=== PATIENT | female | born 1995 | race Caucasian/White ===

== ENCOUNTER 2022-03-14 15:48 | Inpatient (IN) | payer MEDICAID, SELFPAY ==
[2022-03-14 15:49] VITALS: BP 143/74; PULSE 85; RESP 16; TEMP 36.4; O2SAT 99; BMI 19.8
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
[2022-03-14] MEDS: LORazepam 2 mg Tablet PO (16:03)
[2022-03-14] MEDS: ziprasidone hcl 20 mg Capsule PO (16:03)
[2022-03-14 16:20] VITALS: BP 143/74; PULSE 85; RESP 19; O2SAT 99
[2022-03-14 16:55] LABS: Basophils # 0.1 10^3/uL (0.0-0.1); Basophils % 0.6 %; Eosinophils # 0.1 10^3/uL (0.0-0.8); Eosinophils % 0.6 %; Hematocrit 38.3 % (37.0-47.0); Hemoglobin 12.5 g/dL (11.5-15.3); Lymphocytes # 2.5 10^3/uL (0.8-4.8); Lymphocytes % 22.8 %; Mean Corpuscular HGB Conc 32.6 g/dL (30.0-36.0); Mean Corpuscular Hemoglobin 26.8 pg (28.0-34.0); Mean Platelet Volume 10.9 fL (7.4-10.4); Monocytes # 0.9 10^3/uL (0.2-0.9); Monocytes % 8.2 %; Neutrophils % 67.6 %; Nucleated Red Blood Cells % 0 %; Platelet Count 321 10^3/cmm (130-400); Red Blood Count 4.67 10^6/uL (4.1-5.3); Red Cell Distribution Width 12.8 % (12.1-15.1); White Blood Count 10.8 10^3/uL (4.0-10.0)
[2022-03-14 17:20] LABS: Alanine Aminotransferase 24 U/L (0-33); Albumin Level 4.8 g/dL (3.5-5.2); Alkaline Phosphatase 68 U/L (35-105); Anion Gap 14.3 (5-19); Aspartate Amino Transferase 46 U/L (0-32); Blood Urea Nitrogen 9 mg/dL (6-20); Calcium 9.8 mg/dL (8.5-10.5); Carbon Dioxide 25 mmol/L (22-29); Chloride 103 mmol/L (98-107); Globulin 3.2 g/dL (1.3-4.6); Glomerular Filtration Rate 86.7 mL/min (90-130); Glucose 120 mg/dL (65-115); Osmolality Calculated 288 mOsm/kg (285-295); Potassium 3.3 mmol/L (3.5-5.1); Sodium 139 mmol/L (136-145); Total Bilirubin 0.6 mg/dL (0.15-1.2)
[2022-03-14 17:25] LABS: Acetaminophen < 5.0 ug/mL (10-30); Alcohol Level < 10 mg/dL (0-10); Salicylate < 0.3 mg/dL (3-10)
[2022-03-14 22:00] VITALS: BP 143/74; PULSE 85; RESP 19; TEMP 36.4
[2022-03-14 22:41] VITALS: BP 114/77; PULSE 80; RESP 17; TEMP 36.4; O2SAT 96
[2022-03-15 06:00] VITALS: BP 114/79; PULSE 73; RESP 14; TEMP 36.7; O2SAT 93
[2022-03-15 08:52] LABS: HCG Qualitative Urine. Negative (Negative)
[2022-03-15 09:22] LABS: Amphetamines Screen Urine Positive (Negative); Barbiturates Screen Urine Negative (Negative); Benzodiazepines Screen Urine Positive (Negative); Cocaine Screen Urine Negative (Negative); Opiate Screen Urine Negative (Negative); PCP Screen Urine Negative (Negative); THC Screen Urine Positive (Negative)
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
[2022-03-15] MEDS: hyDROXYzine 25 mg Capsule 50 MG PO (13:34)
[2022-03-15 14:00] VITALS: BP 111/76; PULSE 70; RESP 16; TEMP 36.8; O2SAT 100
[2022-03-15] MEDS: paliperidone ER 6 mg Tablet PO (17:37)
[2022-03-15 21:00] VITALS: BP 102/66; PULSE 78; RESP 17; TEMP 36.3; O2SAT 99
[2022-03-15] MEDS: trazodone 50 mg Tablet PO (21:26)
[2022-03-16 06:00] VITALS: BP 116/85; PULSE 93; RESP 17; TEMP 36.8; O2SAT 98
[2022-03-16] MEDS: fluoxetine 20 mg Capsule PO (08:49)
[2022-03-16] MEDS: paliperidone ER 6 mg Tablet PO (08:49)
[2022-03-16 13:00] VITALS: BP 112/75; PULSE 68; RESP 18; TEMP 36.8; O2SAT 100
--- NOTE | 2022-03-16 17:11 | P.NPUPN_ITS ---
Subjective NPU Subjective: Patient presents today reporting that she is tired but okay with the medication. We discussed the importance of us assisting her with her recovery and help to alleviate the psychosis. Otherwise she denies any new issues. Mental Status Exam MSE Comments: This is a well nourished, well developed white female in hospital scrubs with adequate grooming and limited eye contact. No abnormal movements except for mild psychomotor agitation. Cooperative with exam in mild distress. Speech was normal rate and volume with frequent pensive pauses. Inappropriate laughter at times. Mood described as tired, affect is congruent. Thought process, organized. Thought content: patient denies suicidal or homici jeanie ideation, endorses paranoia but no delusions noted and endorses auditory and visual hallucinations. Attention and concentration are intact and memory appeared mostly reliable but none were formally tested. She is alert and oriented three times. Insight and judgment are impaired. Impulse control is impaired. Vitals/I&O/Wt Last Vital Signs Temp 98.2 F 03/16/22 13:00 Pulse 68 03/16/22 13:00 Resp 18 03/16/22 13:00 BP 112/75 03/16/22 13:00 Pulse Ox 100 03/16/22 13:00 O2 Del Method 03/16/22 13:00 Data NPU : 03/14/22 16:40 03/14/22 16:40 A&P Assessment and plan (1) Acute psychosis: Status: Acute (2) Methamphetamine use disorder, severe: Status: Acute Plan This is a 26 year old white female with a history of trauma, methamphetamine and past opiate use and genetic loading for mental health and addiction issues who presents after recent methamphetamine use reporting paranoia and hallucinations and having problems with her memory. 1. Continue current medications started Invega 6 mg p.o. daily for psychosis. 2. Encourage individual, group and milieu therapy 3. Continue q-15 minute check for safety 4. Recommend sober living treatment at the highest level of care to which the patient is willing to commit. Involuntary Hold Information 96 Hour Hold: 96 Hour Involuntary Admission: Yes 96 Hour Hold Ending Date: 03/14/22 Attestations NPU Medical Necessity Statement*: Inpatient hospitalization is medically necessary and the clinically appropriate intervention at this time. We will monitor medications and make changes as indicated. Likely length of stay is 2-4 days. Coding Level of Care Code Acute Tricot Knitting Machine Operator for Chg Fwd Diagnoses Acute psychosis F23 Methamphetamine use disorder, severe F15.20
[2022-03-16] MEDS: nicotine 4 mg lozenge MUCOUS MEM (17:13)
[2022-03-16 19:50] VITALS: BP 108/71; PULSE 99; RESP 16; TEMP 36.4; O2SAT 100
[2022-03-16] MEDS: trazodone 50 mg Tablet PO (20:49)
[2022-03-17 06:00] VITALS: BP 101/68; PULSE 77; RESP 17; TEMP 36.9; O2SAT 95; BMI 19.8
[2022-03-17] MEDS: hyDROXYzine 25 mg Capsule 50 MG PO (08:46)
[2022-03-17] MEDS: fluoxetine 20 mg Capsule PO (08:46)
[2022-03-17] MEDS: paliperidone ER 6 mg Tablet PO (08:46)
[2022-03-17] MEDS: nicotine 4 mg lozenge MUCOUS MEM ×2 (08:46→15:19)
[2022-03-17] MEDS: nicotine 21 mg Patch 1 PATCH TRANSDERMA (10:47)
--- NOTE | 2022-03-17 11:39 | P.NPUPN_ITS ---
Subjective NPU Subjective: Patient is in today reporting she is feeling slightly better. She continue to be isolative spending most of her time in bed but no reports of inappropriate laughter. She reports that she next medication is helping and that she is tired probably from medication and coming down off of the drugs. Mental Status Exam MSE Comments: This is a well nourished, well developed white female in hospital scrubs with adequate grooming and limited eye contact. No abnormal movements except for mild psychomotor agitation. Cooperative with exam in mild distress. Speech was slightly decreased rate and volume with less pensive pauses. Mood described as tired, affect is congruent. Thought process, organized. Thought content: patient denies suicidal or homicidal ideation, endorses paranoia but no delusions noted and endorses auditory and visual hallucinations. Attention and concentration are intact and memory appeared mostly reliable but none were formally tested. She is alert and oriented three times. Insight and judgment are impaired. Impulse control is impaired. Vitals/I&O/Wt Last Vital Signs Temp 98.4 F 03/17/22 06:00 Pulse 77 03/17/22 06:00 Resp 17 03/17/22 06:00 BP 101/68 03/17/22 06:00 Pulse Ox 95 03/17/22 06:00 O2 Del Method 03/17/22 06:00 1 Weight last 48 hrs Weight 58.967 kg Data NPU : 03/14/22 16:40 03/14/22 16:40 A&P Assessment and plan (1) Acute psychosis: Status: Acute (2) Methamphetamine use disorder, severe: Status: Acute Plan This is a 26 year old white female with a history of trauma, methamphetamine and past opiate use and genetic loading for mental health and addiction issues who presents after recent methamphetamine use reporting paranoia and hallucinations and having problems with her memory. 1. Continue current medications continuing Invega 6 mg p.o. daily for psychosis. 2. Encourage individual, group and milieu therapy 3. Continue q-15 minute check for safety 4. Recommend sober living treatment at the highest level of care to which the patient is willing to commit. Involuntary Hold Information 96 Hour Hold: 96 Hour Involuntary Admission: Yes 96 Hour Hold Ending Date: 03/14/22 Attestations NPU Medical Necessity Statement*: Inpatient hospitalization is medically necessary and the clinically appropriate intervention at this time. We will monitor medications and make changes as indicated. Likely length of stay is 2-4 days. Coding Level of Care Code Acute Traffic Safety Administrator for Mohang Fwd Diagnoses Acute psychosis F23 Methamphetamine use disorder, severe F15.20
[2022-03-17 14:00] VITALS: BP 130/85; PULSE 94; RESP 16; TEMP 36.9; O2SAT 100
[2022-03-17] MEDS: OLANZapine 5 mg ODT PO (15:20)
[2022-03-17 20:11] VITALS: BP 114/78; PULSE 74; RESP 17; TEMP 37.1; O2SAT 98
[2022-03-18 06:00] VITALS: BP 113/75; PULSE 64; RESP 17; TEMP 36.8; O2SAT 98
[2022-03-18] MEDS: fluoxetine 20 mg Capsule PO (08:27)
[2022-03-18] MEDS: paliperidone ER 6 mg Tablet PO (08:27)
[2022-03-18] MEDS: nicotine 4 mg lozenge MUCOUS MEM ×2 (08:28→14:23)
[2022-03-18] MEDS: hyDROXYzine 25 mg Capsule 50 MG PO (08:28)
[2022-03-18 14:00] VITALS: BP 113/74; PULSE 82; RESP 18; TEMP 37; O2SAT 99
--- NOTE | 2022-03-18 14:41 | W.PM.NPUPNS ---
Subjective NPU Subjective: Patient presents today reporting that she is doing better but she still struggles with auditory and visual hallucinations. We discussed her 96-hour hold and the possibility of him being extended tomorrow by filing for a 21 day hold. We discussed her parents possibly seeking guardianship this created a very spirited conversation. Discussed importance of having a plan which will assist her after discharge Mental Status Exam MSE Comments: This is a well nourished, well developed white female in hospital scrubs with adequate grooming and limited eye contact. No abnormal movements. Cooperative with exam in mild distress. Speech was slightly decreased rate and volume. Mood described as tired, affect is congruent. Thought process, organized. Thought content: patient denies suicidal or homicidal ideation, she endorses paranoia but no delusions noted and endorses auditory and visual hallucinations. Attention and concentration are intact and memory appeared mostly reliable but none were formally tested. She is alert and oriented three times. Insight and judgment are improving. Impulse control is impaired. Vitals/I&O/Wt Last Vital Signs Temp 98.6 F 03/18/22 14:00 Pulse 82 03/18/22 14:00 Resp 18 03/18/22 14:00 BP 113/74 03/18/22 14:00 Pulse Ox 99 03/18/22 14:00 O2 Del Method 03/18/22 14:00 Weight last 48 hrs Weight 58.967 kg Data NPU : 03/14/22 16:40 03/14/22 16:40 A&P Assessment and plan (1) Acute psychosis: Status: Acute (2) Methamphetamine use disorder, severe: Status: Acute Plan This is a 26 year old white female with a history of trauma, methamphetamine and past opiate use and genetic loading for mental health and addiction issues who presents after recent methamphetamine use reporting paranoia and hallucinations and having problems with her memory. 1. Continue current medications continuing Invega 6 mg p.o. daily for psychosis. Restart lithium ER 450 mg bid. 2. Encourage individual, group and milieu therapy 3. Continue q-15 minute check for safety 4. Recommend sober living treatment at the highest level of care to which the patient is willing to commit. Involuntary Hold Information 96 Hour Hold: 96 Hour Involuntary Admission: Yes 96 Hour Hold Ending Date: 03/14/22 Attestations NPU Medical Necessity Statement*: Inpatient hospitalization is medically necessary and the clinically appropriate intervention at this time. We will monitor medications and make changes as indicated. Likely length of stay is 1-3 days. Considering 21-day hold which could prolong stay. Coding Level of Care Code Acute Accounts Payables Clerk for Terence Boyerd Diagnoses Acute psychosis F23 Methamphetamine use disorder, severe F15.20
[2022-03-18] MEDS: acetaminophen 325 mg Tablet 650 MG PO (16:13)
[2022-03-18] MEDS: lithium carbonate ER 450 mg Tablet PO (17:37)
[2022-03-18] MEDS: buprenorphine-naloxone 4-1 mg Film 2 EACH SUBLINGUAL (19:44)
[2022-03-18] MEDS: gabapentin 300 mg Capsule PO (19:45)
[2022-03-18 21:25] VITALS: BP 107/71; PULSE 71; RESP 18; TEMP 36.6; O2SAT 98
[2022-03-19 06:00] VITALS: BP 110/70; PULSE 51; RESP 18; TEMP 36.4; O2SAT 98
[2022-03-19] MEDS: paliperidone ER 6 mg Tablet PO (08:08)
[2022-03-19] MEDS: gabapentin 300 mg Capsule PO ×3 (08:08→20:52)
[2022-03-19] MEDS: lithium carbonate ER 450 mg Tablet PO ×2 (08:08→17:00)
[2022-03-19] MEDS: fluoxetine 20 mg Capsule PO (08:08)
[2022-03-19 14:00] VITALS: BP 125/82; PULSE 114; RESP 18; TEMP 36.6; O2SAT 97
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
[2022-03-19] MEDS: trazodone 50 mg Tablet PO (20:52)
[2022-03-19] MEDS: buprenorphine-naloxone 4-1 mg Film 2 EACH SUBLINGUAL (20:54)
[2022-03-19 21:20] VITALS: BP 111/71; PULSE 96; RESP 16; TEMP 36.8; O2SAT 96
[2022-03-20 06:00] VITALS: BP 116/62; PULSE 117; RESP 18; TEMP 37.7; O2SAT 97
[2022-03-20] MEDS: ondansetron 4 MG Tablet PO (09:04)
[2022-03-20 10:53] LABS: Basophils # 0.1 10^3/uL (0.0-0.1); Basophils % 0.3 %; Eosinophils % 0.2 %; Hematocrit 35.6 % (37.0-47.0); Hemoglobin 11.6 g/dL (11.5-15.3); Lymphocytes # 0.7 10^3/uL (0.8-4.8); Lymphocytes % 3.3 %; Mean Corpuscular HGB Conc 32.6 g/dL (30.0-36.0); Mean Corpuscular Hemoglobin 27.6 pg (28.0-34.0); Mean Corpuscular Volume 84.6 fl (81-99); Mean Platelet Volume 11.1 fL (7.4-10.4); Monocytes # 1.8 10^3/uL (0.2-0.9); Monocytes % 7.9 %; Neutrophils # 19.28 10^3/uL (1.8-7.7); Neutrophils % 87.3 %; Nucleated Red Blood Cells % 0 %; Platelet Count 277 10^3/cmm (130-400); Red Blood Count 4.21 10^6/uL (4.1-5.3); Red Cell Distribution Width 13.5 % (12.1-15.1); White Blood Count 22.1 10^3/uL (4.0-10.0)
[2022-03-20 11:10] LABS: Alanine Aminotransferase 9 U/L (0-33); Albumin Level 3.6 g/dL (3.5-5.2); Alkaline Phosphatase 54 U/L (35-105); Anion Gap 12.7 (5-19); Aspartate Amino Transferase 10 U/L (0-32); Blood Urea Nitrogen 11 mg/dL (6-20); Carbon Dioxide 26 mmol/L (22-29); Chloride 99 mmol/L (98-107); Globulin 2.9 g/dL (1.3-4.6); Glomerular Filtration Rate 101.1 mL/min (90-130); Glucose 102 mg/dL (65-115); Osmolality Calculated 278 mOsm/kg (285-295); Potassium 3.7 mmol/L (3.5-5.1); Sodium 134 mmol/L (136-145); Total Bilirubin 0.3 mg/dL (0.15-1.2); Total Protein 6.5 g/dL (6.6-8.7)
[2022-03-20 11:15] LABS: Lithium 0.4 mmol/L (0.6-1.2)
--- NOTE | 2022-03-20 13:55 | XR_ITS ---
WS: [id number] Portable AP upright chest, 03/20/2022 Clinical Data: fever evaluation Comparison: None. Findings: No nodules, masses or effusions are seen. The heart is normal. The pulmonary vascularity is not increased. No pneumonia or pneumothorax is seen. XR/XR chest 1V portable [id number] Impression: Negative chest.
[2022-03-20 14:00] VITALS: BP 112/71; PULSE 87; RESP 18; TEMP 36.9; O2SAT 98
--- NOTE | 2022-03-20 14:47 | W.PM.NPUPNS ---
Subjective NPU Subjective: Patient presents today continuing to report feeling lethargic but attributing it to the medication we recently restarted. She had a elevated temperature child fever technically and some clinical lab work was done with her white count being elevated compared to admission. Given her possible exposures a medical consult was requested to explore possible causes of her presentation. We discussed the fact that her 21-day hold paperwork was filed with a hearing tomorrow at 3:15 PM. We discussed the likely testimony of this physician underwriter and our belief she needs more time in the hospital. Mental Status Exam MSE Comments: This is a well nourished, well developed white female in hospital scrubs with adequate grooming and limited eye contact. No abnormal movements except for significant psychomotor retardation. Cooperative with exam in mild distress. Speech was slightly decreased rate and volume. Mood described as tired/out of it, affect is congruent. Thought process, organized. Thought content: patient denies suicidal or homicidal ideation, she endorses paranoia but no delusions noted and endorses auditory and visual hallucinations. Attention and concentration are intact and memory appeared mostly reliable but none were formally tested. She is alert and oriented x3. Insight and judgment are improving. Impulse control is impaired. Vitals/I&O/Wt Last Vital Signs Temp 98.4 F 03/20/22 14:00 Pulse 87 03/20/22 14:00 Resp 18 03/20/22 14:00 BP 112/71 03/20/22 14:00 Pulse Ox 98 03/20/22 14:00 O2 Del Method 03/20/22 06:00 03/20/22 03/20/22 03/20/22 06:59 14:59 22:59 Intake Total 720 / 720 Balance 720 / 720 Data NPU : 03/20/22 10:20 03/20/22 10:20 Micro: Microbiology 03/20/22 14:18 Blood Culture - Preliminary Blood SPECIMEN COLLECTED 03/20/22 14:20 Blood Culture - Preliminary Blood SPECIMEN COLLECTED Microbiology 03/20/22 14:18 Blood Blood Culture - Preliminary SPECIMEN COLLECTED 03/20/22 14:20 Blood Blood Culture - Preliminary SPECIMEN COLLECTED A&P Assessment and plan (1) Acute psychosis: Status: Acute (2) Methamphetamine use disorder, severe: Status: Acute Plan This is a 26 year old white female with a history of trauma, methamphetamine and past opiate use and genetic loading for mental health and addiction issues who presents after recent methamphetamine use reporting paranoia and hallucinations and having problems with her memory. 1. Continue current medications continuing Invega 6 mg p.o. daily for psychosis. Restart lithium ER 450 mg bid. Other medications restarted but we will need to adjust medication and also consider any medications to discontinue to avoid significant polypharmacy. 2. Encourage individual, group and milieu therapy 3. Continue q-15 minute check for safety 4. Recommend sober living treatment at the highest level of care to which the patient is willing to commit. 5. 21-day hold hearing tomorrow. 6. Appreciate hospitalist consult will await recommendations and follow as indicated. Involuntary Hold Information 96 Hour Hold: 96 Hour Involuntary Admission: Yes 96 Hour Hold Ending Date: 03/14/22 Attestations NPU Medical Necessity Statement*: Inpatient hospitalization is medically necessary and the clinically appropriate intervention at this time. We will monitor medications and make changes as indicated. Likely length of stay is 7-10 days. 21-day hold which will prolong stay. Coding Level of Care Code Acute Renewable Energy Division Manager for [facility] Diagnoses Acute psychosis F23 Methamphetamine use disorder, severe F15.20
--- NOTE | 2022-03-20 15:09 | PC.NURSE ---
Hold Meds Held all [address] Azar. Hospitalist consult for pt, labs ordered and scans. Hold all medications until seen by Dr. Veras.
[2022-03-20 15:13] LABS: Hepatitis A Antibody IgM Non-Reactive (Nonreactive); Hepatitis B Core AB, Total Non-Reactive (Nonreactive); Hepatitis B Surface AB 48.4 (11.5-1000); Hepatitis B Surface Antigen Non-Reactive (Nonreactive); Hepatitis C Virus Antibody Reactive (Nonreactive)
[2022-03-20 16:08] LABS: HIV 1 & 2 Antibody Non-Reactive (Non-Reactiv); HIV 1 & 2 Antigen Non-Reactive (Non-Reactiv)
[2022-03-20 17:08] LABS: Add Urine Culture? No; Add Urine Microscopic? YES; Bacteria Urine TRACE /hpf; Bilirubin Urine Neg (Negative); Blood Urine Neg (Negative); Glucose Urine UA Norm (Normal); Ketones Urine Negative (Negative); Leukocyte Esterase Urine 1+ (Negative); Mucus Urine 3+ /hpf; Nitrate Urine Negative (Negative); Protein Urine Neg (Negative); RBC Urine 0-4 /hpf (0-2); Specific Gravity, Urine 1.005 (1.005-1.030); Squamous Epithelial Cell Urine 0-4 /hpf (0-5); Urine Appearance Clear (CLEAR); Urine Color Yellow (Yellow); Urobilinogen Urine Norm (Negative); pH Urine 7 (5-7)
[2022-03-20 17:18] LABS: Amphetamines Screen Urine Negative (Negative); Barbiturates Screen Urine Negative (Negative); Benzodiazepines Screen Urine Negative (Negative); Cocaine Screen Urine Negative (Negative); Opiate Screen Urine Negative (Negative); PCP Screen Urine Negative (Negative); THC Screen Urine Positive (Negative)
--- NOTE | 2022-03-20 18:12 | PC.NURSE ---
Hold Medications Held [place] dose for [address] Azar and consulting Physician.
[2022-03-20 18:29] LABS: SARS Covid-2 Antigen Negative (Negative)
[2022-03-20 20:19] VITALS: BP 106/72; PULSE 92; RESP 17; TEMP 36.4; O2SAT 97
[2022-03-20] MEDS: trazodone 50 mg Tablet PO (21:05)
[2022-03-20] MEDS: buprenorphine-naloxone 4-1 mg Film 2 EACH SUBLINGUAL (21:05)
[2022-03-20] MEDS: gabapentin 300 mg Capsule PO (21:06)
--- NOTE | 2022-03-20 22:08 | P.CONIM_ITS ---
Providers/Reason For Consult Consulting Physician/Specialty*: Yesenia Veras MD/Hospitalist Reason for Consult*: fever Attending Physician: Byron Azar MD Primary Care Provider: Wayne Ken DO History of Present Illness History of Present Illness Yolanda Macias is a 26 year old female with history of schizophrenia who is currently admitted at NPU for acute psychosis currently on invega and [place]. Medicine service is sonsulted fo development of fever, chills, genralized malaise that started this morning. Patient was noted to have t max 100F. Additionally developed leukocytosis to 22K raising concern for infectious causes. She denies cough, chest pain, dyspnea. This morning she felt that she no appetite however states this is better now. 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 No c/o dysuria. No c/o abdominal pain. H/o IVDU+. h/o high risk sexual behavior+. h/o prior incarceration+. Labs notable for leukocytosis 22K, positive hep c ab screen. Review of Systems General: Reports: 10 or more systems reviewed and unremarkable except in HPI and below Const: Denies: fever(s), chills or body aches Eyes: Denies: change in vision, blurry vision or photophobia ENMT: Reports: hoarseness; Denies: throat pain, enlarged tonsils, odynophagia or nasal congestion Card: Denies: chest pain, palpitations, irregular heart rhythm, edema, swelling of feet/ankles, lightheadedness, pre-syncope, dyspnea on exertion or orthopnea Resp: Denies: dyspnea, productive cough, non-productive cough, wheezing, stridor, pain on inspiration, change in phlegm color, hemoptysis or chest congestion GI: Denies: abdominal pain, nausea, vomiting, hematemesis, coffee ground emesis, dysphagia, heartburn, diarrhea, constipation, GI cramping, change in stool character, hematochezia or melena : Denies: flank pain, difficulty voiding, dysuria, urinary frequency, urinary urgency, urinary hesitancy or hematuria Musc: Denies: neck pain, back pain, extremity pain, joint swelling, joint wa rmth or deformity Neuro: Denies: headache(s), numbness in extremities, weakness in extremities, sensory changes, difficulty walking, frequent falls, dizziness, vertigo, b ehavioral changes, Slurred speech present or seizure-like activity Psych: Denies: anxiety, depression, suicidal ideation or homicidal ideation Endo: Denies: polyuria, polydipsia, tired all the time, cold intolerance or hot flashes Mahesh/Lymph: Denies: easy bruising or easy bleeding Medications/Allergies Home Medications Medication Instructions Recorded Confirmed Last Taken Type buprenorphine 8 mg-naloxone 2 mg 1 film sublingual DAILY 01/27/22 03/16/22 Unknown History sublingual film (Suboxone) fluoxetine 10 mg capsule (Prozac) 20 mg PO DAILY 01/27/22 03/16/22 Unknown History Allergies Allergy/AdvReac Type Severity Reaction Status Date / Time No Known Allergies Allergy Verified 01/27/22 17:06 Current Medications Generic Name Dose Route Start Last Admin Trade Name Freq PRN Reason Stop Dose Admin Acetaminophen 650 mg 03/14/22 21:28 03/18/22 16:13 Acetaminophen 325 Mg Tablet PO 650 mg Q4H PRN Administration MILD PAIN Buprenorphine/Naloxone 2 each 03/18/22 21:00 03/20/22 21:05 Buprenorphine-Naloxone 4-1 Mg Film SUBLINGUAL 2 each BEDTIME JEFF Administration Fluoxetine HCl 20 mg 03/16/22 09:00 03/20/22 15:08 Fluoxetine 20 Mg Capsule PO Not Given DAILY JEFF Gabapentin 300 mg 03/18/22 21:00 03/20/22 21:06 Gabapentin 300 Mg Capsule PO 300 mg TID JEFF Administration Hydroxyzine Pamoate 50 mg 03/14/22 21:28 03/18/22 08:28 Hydroxyzine 25 Mg Capsule PO 50 mg Q6H PRN Administration ANXIETY [place] Carbonate 450 mg 03/18/22 18:00 03/20/22 18:12 [place] Carbonate Er 450 Mg Tablet PO Not Given BID JEFF Nicotine 1 patch 03/14/22 21:28 03/17/22 10:47 Nicotine 21 Mg Patch TRANSDERMA 1 patch DAILY PRN Administration NICOTINE WITHDRAWAL Nicotine Polacrilex 4 mg 03/16/22 16:58 03/18/22 14:23 Nicotine 4 Mg Lozenge MUCOUS MEM 4 mg Q2H PRN Administration NICOTINE CRAVINGS Olanzapine 5 mg 03/14/22 21:28 03/17/22 15:20 Olanzapine 5 Mg Odt PO 5 mg Q4H PRN Administration Agitation/Psychosis Ondansetron HCl 4 mg 03/14/22 21:28 03/20/22 09:04 Ondansetron 4 Mg Tablet PO 4 mg Q6H PRN Administration NAUSEA AND VOMITING Paliperidone 6 mg 03/16/22 09:00 03/20/22 15:08 Paliperidone Er 6 Mg Tablet PO Not Given DAILY JEFF Trazodone HCl 50 mg 03/14/22 21:28 03/20/22 21:05 Trazodone 50 Mg Tablet PO 50 mg BEDTIME PRN Administration SLEEP PFSH Acute PFSH: Medical History (Updated 03/22/22 @ 08:57 by Yesenia Veras MD) Seizure disorder Social History Smoking and tobacco status: current every day smoker (vape) e-cigarettes E- Cigarette Details: vaporizer device Vitals/I&O/Wt Last Vital Signs Temp 97.5 F L 03/20/22 20:19 Pulse 92 03/20/22 20:19 Resp 17 03/20/22 20:19 BP 106/72 03/20/22 20:19 Pulse Ox 97 03/20/22 20:19 O2 Del Method 03/20/22 06:00 03/20/22 03/20/22 03/20/22 06:59 14:59 22:59 Intake Total 720 / 720 Balance 720 / 720 Physical Exam Narrative: General: No acute distress, AO x3 HEENT: PERRLA, pupils bilaterally equal and reactive, pallors not present Chest: Normal vesicular breath sounds, no added sounds, equal good air entry bilaterally CVS: S1-S2 regular, no murmurs, no tachycardia, no gallops, no rubs Abdomen: Soft, nontender, no organomegaly, bowel sounds present Neuro: No focal deficits, no facial deformity, AO x3, power 5/5 in all limbs Data : 03/21/22 08:04 03/21/22 08:04 Micro: Microbiology 03/20/22 14:18 Blood Culture - Preliminary Blood SPECIMEN COLLECTED 03/20/22 14:20 Blood Culture - Preliminary Blood SPECIMEN COLLECTED A&P Assessment and plan (1) Fever: Fever this am No overt localizing signs or symptoms at this time Check UA, Urine cx, blood cx (h/o IVDU), hep C PCR (+ screen, reports being diagnosed 3 years ago, resolved without treatment per patient), Hiv screen given high risk behavior, CXR, COVID Ag, CXR. Further treatment close to be decided based on above investigations. No signs of sepsis at this time. Status: Acute Consult Attestations Medical Necessity Statement: Per admitting Coding Level of Care Code Acute Head Of Science for [facility] Fwd Diagnoses Fever R50.9
[2022-03-20] MEDS: levoFLOXacin 750 mg Tablet PO (22:11)
[2022-03-21] MEDS: ibuprofen 600 mg Tablet PO (03:29)
[2022-03-21 06:00] VITALS: BP 117/77; PULSE 63; RESP 16; TEMP 36.8; O2SAT 97
[2022-03-21] MEDS: nicotine 4 mg lozenge MUCOUS MEM (07:01)
[2022-03-21] MEDS: fluoxetine 20 mg Capsule PO (08:11)
[2022-03-21] MEDS: lithium carbonate ER 450 mg Tablet PO ×2 (08:11→17:12)
[2022-03-21] MEDS: levoFLOXacin 750 mg Tablet PO (08:12)
[2022-03-21] MEDS: paliperidone ER 6 mg Tablet PO (08:12)
[2022-03-21] MEDS: gabapentin 300 mg Capsule PO ×3 (08:12→20:27)
[2022-03-21 08:15] LABS: Basophils % 0.2 %; Eosinophils # 0.2 10^3/uL (0.0-0.8); Eosinophils % 1.5 %; Hematocrit 38.3 % (37.0-47.0); Hemoglobin 12.1 g/dL (11.5-15.3); Lymphocytes # 2.4 10^3/uL (0.8-4.8); Lymphocytes % 14.5 %; Mean Corpuscular HGB Conc 31.6 g/dL (30.0-36.0); Mean Corpuscular Volume 85.5 fl (81-99); Mean Platelet Volume 10.7 fL (7.4-10.4); Monocytes % 6.2 %; Neutrophils # 12.53 10^3/uL (1.8-7.7); Neutrophils % 77.2 %; Nucleated Red Blood Cells % 0 %; Platelet Count 300 10^3/cmm (130-400); Red Blood Count 4.48 10^6/uL (4.1-5.3); Red Cell Distribution Width 13.6 % (12.1-15.1); White Blood Count 16.2 10^3/uL (4.0-10.0)
[2022-03-21 08:39] LABS: Alanine Aminotransferase 10 U/L (0-33); Albumin Level 4.3 g/dL (3.5-5.2); Alkaline Phosphatase 64 U/L (35-105); Anion Gap 13.2 (5-19); Aspartate Amino Transferase 10 U/L (0-32); Blood Urea Nitrogen 7 mg/dL (6-20); Calcium 9.4 mg/dL (8.5-10.5); Carbon Dioxide 28 mmol/L (22-29); Chloride 98 mmol/L (98-107); Glomerular Filtration Rate 120.8 mL/min (90-130); Glucose 142 mg/dL (65-115); Osmolality Calculated 280 mOsm/kg (285-295); Potassium 4.2 mmol/L (3.5-5.1); Sodium 135 mmol/L (136-145); Total Bilirubin 0.2 mg/dL (0.15-1.2); Total Protein 7.3 g/dL (6.6-8.7)
[2022-03-21 09:23] LABS: RPR w(Moniotor) w/REFL Titer NON-REACTIVE (NON-REACTIVE)
[2022-03-21] MEDS: OLANZapine 5 mg ODT PO (10:44)
--- NOTE | 2022-03-21 10:46 | PC.NURSE ---
Addendum entered by Marleni Salgado LPN 03/21/22 12:00: PT CAME BACK UP TO NURSES STATION STATING THE PARANOIA IS STILL PRESENT AND HAS NOT GOTTEN ANY BETTER. AT THIS TIME HALDOL WAS GIVEN. PT IS RESTING IN BED Original Note: DURING THIS MORNINGS ASSESSMENT PT TOLD THIS NURSE SHE FELT LIKE SHE WAS ON THE EDGE OF GOING CRAZY AND FELT ANXIOUS. TODAY PT HAS HEARING AT THE [facility] REGARDING 21 DAY HOLD. PT HAD ALREADY ASK SEVERAL QUESTIONS REGARDING THE PROCESS AND WHAT ALL THE HEARING WILL ENTAIL. THIS NURSE SPOKE WITH THE PT AT LENGTH ABOUT A 96 HOUR HOLD AND A 21 DAY HOLD. PT VERBALIZED UNDERSTANDING AND STATED SHE FELT BETTER. AT 1030 PT CAME TO NURSES STATION AND ASK TO SPEAK WITH THIS NURSE ABOUT HER CURRENT FEELINGS. PT LOOKED AT THIS NURSE AND TURNED HER HEAD SIDEWAYS, STATING I FEEL LIKE IM GOING CRAZY . ONCE IN PT ROOM PT TELLS THIS NURSE HOW SHE BELIEVES OTHER STAFF IS ON THE PHONE WITH A RESTORATIONIST ORGANIZATION IN [facility] AND WANT PT INSTITUTIONALIZED. PT CONTINUES WITH FLIGHT OF IDEAS, ON MULTIPLE TOPICS ABOUT [employer] AND THE GOVERNMENT. PT AGREED TO TAKE PRN MEDICATION FOR ANXIETY. PT WAS ENCOURAGED TO SPEAK WITH STAFF ABOUT INCREASED FEELINGS OF PARANOIA. PT AGREED TO DO SO. PT LASTLY ASK THIS NURSE IF WRITING DOWN PT FEELINGS AND THOUGHTS MIGHT HELP AND THIS NURSE SUGGESTED WRITING DOWN THOUGHTS AND COMPARING THEM TO REALITY AND WHAT IS OCCURRING. PT LIKED THE IDEA AND WENT TO GROUP.
--- NOTE | 2022-03-21 11:16 | W.PM.NPUPNS ---
Subjective NPU Subjective: Patient presents today reporting that she is a little anxious about the hearing this afternoon. We discussed the fact that there was nothing to worry about and that we would simply be identifying our belief that she needs to stay longer. Additionally discussed the Levaquin that had been started and she notes she is tolerating it and feeling little better but still feeling tired. The preliminary thought is that this is a UTI. Her white count was down this morning we discussed continuing to monitor other laboratory studies and her continued improvement. Staff having continued reports of paranoia and strange statements. She noted that she has moments that she is still feeling unsure of what is real. Mental Status Exam MSE Comments: This is a well nourished, well developed white female in hospital scrubs with adequate grooming and limited eye contact. No abnormal movements except for significant psychomotor retardation. Cooperative with exam in mild distress. Speech was slightly decreased rate and volume. Mood described as still feeling drained, affect is congruent. Thought process, organized. Thought content: patient denies suicidal or homicidal ideation, she endorses paranoia but no delusions noted and endorses auditory and visual hallucinations. Attention and concentration are intact and memory appeared mostly reliable but none were formally tested. She is alert and oriented x3. Insight and judgment are improving. Impulse control is limited. Vitals/I&O/Wt Last Vital Signs Temp 98.2 F 03/21/22 06:00 Pulse 63 03/21/22 06:00 Resp 16 03/21/22 06:00 BP 117/77 03/21/22 06:00 Pulse Ox 97 03/21/22 06:00 O2 Del Method 03/20/22 06:00 Data NPU : 03/21/22 08:04 03/21/22 08:04 Micro: Microbiology 03/20/22 14:18 Blood Culture - Preliminary Blood SPECIMEN COLLECTED 03/20/22 14:20 Blood Culture - Preliminary Blood SPECIMEN COLLECTED Microbiology 03/20/22 14:18 Blood Blood Culture - Preliminary SPECIMEN COLLECTED 03/20/22 14:20 Blood Blood Culture - Preliminary SPECIMEN COLLECTED A&P Assessment and plan (1) Acute psychosis: Status: Acute (2) Methamphetamine use disorder, severe: Status: Acute Plan This is a 26 year old white female with a history of trauma, methamphetamine and past opiate use and genetic loading for mental health and addiction issues who presents after recent methamphetamine use reporting paranoia and hallucinations and having problems with her memory. 1. Continue current medications continuing Invega 6 mg p.o. daily for psychosis. Restarted lithium ER 450 mg bid. Other medications restarted but we will need to adjust medication and also consider any medications to discontinue to avoid significant polypharmacy. 2. Encourage individual, group and milieu therapy 3. Continue q-15 minute check for safety 4. Recommend sober living treatment at the highest level of care to which the patient is willing to commit. 5. 21-day hold hearing later today. 6. Appreciate hospitalist consult will follow recommendations as indicated. Involuntary Hold Information 96 Hour Hold: 96 Hour Involuntary Admission: Yes 96 Hour Hold Ending Date: 03/14/22 Attestations NPU Medical Necessity Statement*: Inpatient hospitalization is medically necessary and the clinically appropriate intervention at this time. We will monitor medications and make changes as indicated. Likely length of stay is 7-10 days. 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
[2022-03-21] MEDS: haloperidol 5 mg Tablet PO (11:58)
[2022-03-21 12:16] LABS: Estmated Average Glucose 111; Hemoglobin A1C 5.5 % (4.0-6.0)
[2022-03-21 14:00] VITALS: BP 113/71; PULSE 83; RESP 16; TEMP 36.7; O2SAT 97
--- NOTE | 2022-03-21 15:00 | P.PN_ITS ---
Subjective Subjective: Leukocytosis trending down. UA turned out positive. Blood cultures thus far negative. Medications: Reviewed: Yes Vitals/I&O/Wt Last Vital Signs Temp 98.8 F 03/22/22 06:00 Pulse 91 03/22/22 06:00 Resp 16 03/22/22 06:00 BP 125/80 03/22/22 06:00 Pulse Ox 96 03/22/22 06:00 O2 Del Method 03/22/22 06:00 03/21/22 03/22/22 03/22/22 22:59 06:59 14:59 Intake Total 720 / 720 Balance 720 / 720 Physical Exam Narrative: General: No acute distress, AO x3 HEENT: PERRLA, pupils bilaterally equal and reactive, pallors not present Chest: Normal vesicular breath sounds, no added sounds, equal good air entry bilaterally CVS: S1-S2 regular, no murmurs, no tachycardia, no gallops, no rubs Abdomen: Soft, nontender, no organomegaly, bowel sounds present Neuro: No focal deficits, no facial deformity, AO x3, power 5/5 in all limbs Data : 03/21/22 08:04 03/21/22 08:04 Micro: Microbiology 03/20/22 16:00 Chlamydia trachomatis (SATISH) - Final Urine Random Neisseria gonorrhoeae (SATISH) - Final 03/20/22 14:20 Blood Culture - Preliminary Blood NEGATIVE TO DATE 03/20/22 14:18 Blood Culture - Preliminary Blood NEGATIVE TO DATE A&P Assessment and plan (1) Fever: No further fever since yesterday morning. Leukocytosis is trending down. UA positive, start levofloxacin empirically while awaiting urine culture data. Blood culture negative thus far. Hepatitis C screen positive, pending PCR. Patient reports having a known diagnosis of hepatitis C, states that this spontaneously cleared. COVID antigen negative. Chest x-ray without gross consolidation. No rashes arthralgias or joint swelling. Status: Acute Attestations Medical Necessity Statement*: Per admitting Coding Level of Care Code Acute Glass Bead Maker for [facility] [place] Pool Diagnoses Fever R50.9
[2022-03-21] MEDS: trazodone 50 mg Tablet PO (20:27)
[2022-03-21] MEDS: buprenorphine-naloxone 4-1 mg Film 2 EACH SUBLINGUAL (20:27)
[2022-03-21 20:38] VITALS: BP 103/58; PULSE 72; RESP 16; TEMP 36.6; O2SAT 93
[2022-03-22 06:00] VITALS: BP 125/80; PULSE 91; RESP 16; TEMP 37.1; O2SAT 96
[2022-03-22] MEDS: gabapentin 300 mg Capsule PO ×3 (08:57→20:20)
[2022-03-22] MEDS: lithium carbonate ER 450 mg Tablet PO ×2 (08:57→17:10)
[2022-03-22] MEDS: levoFLOXacin 750 mg Tablet PO (08:57)
[2022-03-22] MEDS: hyDROXYzine 25 mg Capsule 50 MG PO (08:57)
[2022-03-22] MEDS: nicotine 4 mg lozenge MUCOUS MEM (08:57)
[2022-03-22] MEDS: fluoxetine 20 mg Capsule PO (08:57)
[2022-03-22] MEDS: paliperidone ER 6 mg Tablet PO (08:57)
[2022-03-22 10:23] LABS: Basophils % 0.4 %; Eosinophils # 0.3 10^3/uL (0.0-0.8); Eosinophils % 2.9 %; Hematocrit 35.4 % (37.0-47.0); Hemoglobin 11.1 g/dL (11.5-15.3); Lymphocytes % 20.7 %; Mean Corpuscular HGB Conc 31.4 g/dL (30.0-36.0); Mean Corpuscular Hemoglobin 27.2 pg (28.0-34.0); Mean Corpuscular Volume 86.8 fl (81-99); Mean Platelet Volume 11.1 fL (7.4-10.4); Monocytes % 9.9 %; Neutrophils # 6.43 10^3/uL (1.8-7.7); Neutrophils % 65.8 %; Nucleated Red Blood Cells % 0 %; Platelet Count 264 10^3/cmm (130-400); Red Blood Count 4.08 10^6/uL (4.1-5.3); Red Cell Distribution Width 13.6 % (12.1-15.1); White Blood Count 9.8 10^3/uL (4.0-10.0)
[2022-03-22 10:52] LABS: Alanine Aminotransferase 8 U/L (0-33); Albumin Level 3.2 g/dL (3.5-5.2); Alkaline Phosphatase 53 U/L (35-105); Anion Gap 14.1 (5-19); Aspartate Amino Transferase 10 U/L (0-32); Blood Urea Nitrogen 8 mg/dL (6-20); Calcium 9.1 mg/dL (8.5-10.5); Carbon Dioxide 25 mmol/L (22-29); Chloride 103 mmol/L (98-107); Globulin 3.1 g/dL (1.3-4.6); Glomerular Filtration Rate 101.1 mL/min (90-130); Glucose 94 mg/dL (65-115); Osmolality Calculated 284 mOsm/kg (285-295); Potassium 4.1 mmol/L (3.5-5.1); Sodium 138 mmol/L (136-145); Total Bilirubin 0.2 mg/dL (0.15-1.2); Total Protein 6.3 g/dL (6.6-8.7)
[2022-03-22] MEDS: haloperidol 5 mg Tablet PO (12:35)
[2022-03-22 14:00] VITALS: BP 96/65; PULSE 71; RESP 16; TEMP 36.6; O2SAT 97
--- NOTE | 2022-03-22 15:06 | PM.PN ---
Subjective Subjective: No further fever episodes. Leukocytosis has now resolved. No new complaints. Discussed with lab that urine culture is not in fact running as UA did not meet reflex criteria as per the lab. Medications: Reviewed: Yes Vitals/I&O/Wt Last Vital Signs Temp 98 F 03/22/22 14:00 Pulse 71 03/22/22 14:00 Resp 16 03/22/22 14:00 BP 96/65 03/22/22 14:00 Pulse Ox 97 03/22/22 14:00 O2 Del Method 03/22/22 14:00 Physical Exam Narrative: General: No acute distress, AO x3 HEENT: PERRLA, pupils bilaterally equal and reactive, pallors not present Chest: Normal vesicular breath sounds, no added sounds, equal good air entry bilaterally CVS: S1-S2 regular, no murmurs, no tachycardia, no gallops, no rubs Abdomen: Soft, nontender, no organomegaly, bowel sounds present Neuro: No focal deficits, no facial deformity, AO x3, power 5/5 in all limbs Data : 03/22/22 09:48 03/22/22 09:48 Micro: Microbiology 03/20/22 16:00 Chlamydia trachomatis (SATISH) - Final Urine Random Neisseria gonorrhoeae (SATISH) - Final 03/20/22 14:20 Blood Culture - Preliminary Blood NEGATIVE TO DATE 03/20/22 14:18 Blood Culture - Preliminary Blood NEGATIVE TO DATE A&P Assessment and plan (1) Fever: No further fever Leukocytosis is resolved UA positive, started levofloxacin empirically. Plan to complete a presumptive 5-day course since patient clinically improved. Urine culture not reflexively running, as noted above. Blood culture negative thus far. Hepatitis C screen positive, pending PCR. Patient reports having a known diagnosis of hepatitis C, states that this spontaneously cleared. This may be followed as outpatient. COVID antigen negative. Chest x-ray without gross consolidation. No rashes arthralgias or joint swelling. Status: Acute Attestations Medical Necessity Statement*: Per admitting Coding Level of Care Code Acute Field Supervisor for [facility] Pool Diagnoses Fever R50.9
--- NOTE | 2022-03-22 16:20 | P.NPUPN_ITS ---
Subjective NPU Subjective: Patient presents today reporting that she is feeling a little better from standpoint of her overall health. We had fairly lengthy conversation about the circumstances that brought her here. Namely her drug use which has been impacted by the fact that her 3 significant others have all ultimately by overdose. Her last significant other in 2019 her mother giving her the news. This is someone with whom she lived and essentially played house for 2 years. She does not know if she has really recovered from those losses. We discussed her anxiety and she reports that there is a plan for her to have Klonopin but in a as needed setting maybe getting 5 doses a month. We discussed the difficulty with that plan secondary to her addiction. We discussed possibly contacting her Suboxone doctor and finding out what his position on the issue is. The other medication we discussed for anxiety she endorsed being ineffective. Mental Status Exam MSE Comments: This is a well nourished, well developed white female in hospital scrubs with adequate grooming and limited eye contact. No abnormal movements except for significant psychomotor retardation, which is starting to resolve. Cooperative with exam in mild distress. Speech was slightly decreased rate and volume. Mood described as anxious, affect is congruent. Thought process, organized. Thought content: patient denies suicidal or homicidal ideation, she endorses paranoia but no delusions noted and endorses auditory and visual hallucinations. Attention and concentration are intact and memory appeared mostly reliable but none were formally tested. She is alert and oriented x3. Insight and judgment are improving. Impulse control is limited. Vitals/I&O/Wt Last Vital Signs Temp 98 F 03/22/22 14:00 Pulse 71 03/22/22 14:00 Resp 16 03/22/22 14:00 BP 96/65 03/22/22 14:00 Pulse Ox 97 03/22/22 14:00 O2 Del Method 03/22/22 14:00 Data NPU : 03/22/22 09:48 03/22/22 09:48 Micro: Microbiology 03/20/22 16:00 Chlamydia trachomatis (SATISH) - Final Urine Random Neisseria gonorrhoeae (SATISH) - Final 03/20/22 14:20 Blood Culture - Preliminary Blood NEGATIVE TO DATE 03/20/22 14:18 Blood Culture - Preliminary Blood NEGATIVE TO DATE Microbiology 03/20/22 16:00 Urine Random Chlamydia trachomatis (SATISH) - Final 03/20/22 16:00 Urine Random Neisseria gonorrhoeae (SATISH) - Final 03/20/22 14:20 Blood Blood Culture - Preliminary NEGATIVE TO DATE 03/20/22 14:18 Blood Blood Culture - Preliminary NEGATIVE TO DATE A&P Assessment and plan (1) Fever: (2) Acute psychosis: (3) Methamphetamine use disorder, severe: Plan This is a 26 year old white female with a history of trauma, methamphetamine and past opiate use and genetic loading for mental health and addiction issues who presents after recent methamphetamine use reporting paranoia and hallucinations and having problems with her memory. 1. Continue current medications continuing Invega 6 mg p.o. daily for psychosis. Restarted lithium ER 450 mg bid. Other medications restarted but we will need to adjust medication and also consider any medications to discontinue to avoid significant polypharmacy. 2. Encourage individual, group and milieu therapy 3. Continue q-15 minute check for safety 4. Recommend sober living treatment at the highest level of care to which the patient is willing to commit. 5. 21-day hold hearing later today. 6. Appreciate hospitalist consult will follow recommendations as indicated. Involuntary Hold Information 96 Hour Hold: 96 Hour Involuntary Admission: Yes 96 Hour Hold Ending Date: 03/14/22 Attestations NPU Medical Necessity Statement*: Inpatient hospitalization is medically necessary and the clinically appropriate intervention at this time. We will monitor medications and make changes as indicated. Likely length of stay is 7-10 days. Coding Level of Care Code Acute Covering And Lining Supervisor for [facility] Diagnoses Fever R50.9 Acute psychosis F23 Methamphetamine use disorder, severe F15.20
[2022-03-22 19:47] VITALS: BP 132/90; PULSE 91; RESP 20; TEMP 36.7; O2SAT 97
[2022-03-22] MEDS: buprenorphine-naloxone 4-1 mg Film 2 EACH SUBLINGUAL (20:25)
[2022-03-23 06:00] VITALS: BP 111/68; PULSE 65; RESP 16; TEMP 36.7; O2SAT 96
[2022-03-23] MEDS: gabapentin 300 mg Capsule PO ×3 (08:12→20:15)
[2022-03-23] MEDS: paliperidone ER 6 mg Tablet PO (08:12)
[2022-03-23] MEDS: lithium carbonate ER 450 mg Tablet PO ×2 (08:13→17:33)
[2022-03-23] MEDS: levoFLOXacin 750 mg Tablet PO (08:13)
[2022-03-23] MEDS: fluoxetine 20 mg Capsule PO (08:13)
[2022-03-23] MEDS: nicotine 4 mg lozenge MUCOUS MEM ×4 (08:37→20:17)
[2022-03-23 14:00] VITALS: BP 102/63; PULSE 78; RESP 17; TEMP 36.7; O2SAT 95
--- NOTE | 2022-03-23 17:04 | P.NPUPN_ITS ---
Subjective NPU Subjective: Patient presents today reporting that she is doing better but does not feel the Invega is a good medication for her. We discussed that she needs something for ongoing management of psychotic symptoms and she reports that her lithium does that fine when she is taking it appropriately. We continued to talk about medication for anxiety and the fact that we need to discuss the possibility with her outpatient Suboxone doctor to make sure he is comfortable with whatever we do. Mental Status Exam MSE Comments: This is a well nourished, well developed white female in hospital scrubs with adequate grooming and limited eye contact. No abnormal movements except for psychomotor retardation, which is starting to improve. Cooperative with exam in mild distress. Speech was slightly decreased rate and volume. Mood described as anxious, affect is congruent. Thought process, organized. Thought content: patient denies suicidal or homicidal ideation, she endorses paranoia but no delusions noted and denies current auditory and visual hallucinations. Attention and concentration are intact and memory appeared mostly reliable but none were formally tested. She is alert and oriented x3. Insight and judgment are improving. Impulse control is limited. Vitals/I&O/Wt Last Vital Signs Temp 98.0 F 03/23/22 14:00 Pulse 78 03/23/22 14:00 Resp 17 03/23/22 14:00 BP 102/63 03/23/22 14:00 Pulse Ox 95 03/23/22 14:00 O2 Del Method 03/22/22 14:00 Data NPU : 03/22/22 09:48 03/22/22 09:48 A&P Assessment and plan (1) Fever: (2) Acute psychosis: (3) Methamphetamine use disorder, severe: Plan This is a 26 year old white female with a history of trauma, methamphetamine and past opiate use and genetic loading for mental health and addiction issues who presents after recent methamphetamine use reporting paranoia and hallucinations and having problems with her memory. 1. Continue current medications continuing Invega 6 mg p.o. daily for psychosis. Restarted lithium ER 450 mg bid. Other medications restarted but we will need to adjust medication and also consider any medications to discontinue to avoid significant polypharmacy. 2. Encourage individual, group and milieu therapy 3. Continue q-15 minute check for safety 4. Recommend sober living treatment at the highest level of care to which the patient is willing to commit. 5. 21-day hold granted. 6. Appreciate hospitalist consult will follow recommendations as indicated. Involuntary Hold Information 96 Hour Hold: 96 Hour Involuntary Admission: Yes 96 Hour Hold Ending Date: 03/14/22 Attestations NPU Medical Necessity Statement*: Inpatient hospitalization is medically necessary and the clinically appropriate intervention at this time. We will monitor medications and make changes as indicated. Likely length of stay is 7-10 days. Coding Level of Care Code Acute Nutrition Therapist for g Fwd Diagnoses Fever R50.9 Acute psychosis F23 Methamphetamine use disorder, severe F15.20
[2022-03-23 20:13] VITALS: BP 113/77; PULSE 106; TEMP 36.9; O2SAT 97
[2022-03-23] MEDS: nicotine 2 mg Gum BUCCAL (20:15)
[2022-03-23] MEDS: buprenorphine-naloxone 4-1 mg Film 2 EACH SUBLINGUAL (20:15)
[2022-03-23] MEDS: trazodone 50 mg Tablet PO (20:17)
[2022-03-23 22:48] LABS: HEP C RNA Viral Load Quant <1.18 NOT DETECTED Log IU/mL (NOT DETECTED); HEP C RNA Viral Load Quant <15 NOT DETECTED IU/mL (NOT DETECTED)
[2022-03-24] MEDS: hyDROXYzine 25 mg Capsule 50 MG PO (01:20)
[2022-03-24] MEDS: nicotine 2 mg Gum BUCCAL (04:14)
[2022-03-24 06:00] VITALS: BP 143/88; PULSE 78; RESP 16; TEMP 36.4; O2SAT 98
[2022-03-24] MEDS: paliperidone ER 6 mg Tablet PO (08:08)
[2022-03-24] MEDS: gabapentin 300 mg Capsule PO ×3 (08:08→21:02)
[2022-03-24] MEDS: fluoxetine 20 mg Capsule PO (08:08)
[2022-03-24] MEDS: lithium carbonate ER 450 mg Tablet PO ×2 (08:08→17:59)
[2022-03-24] MEDS: levoFLOXacin 750 mg Tablet PO (08:08)
[2022-03-24] MEDS: nicotine 4 mg lozenge MUCOUS MEM ×2 (08:41→11:50)
--- NOTE | 2022-03-24 09:02 | P.NPUPN_ITS ---
Subjective NPU Subjective: Patient presents today reporting that she is feeling better and reports from staff are that there are less odd comments. We continue to discuss her anxiety and the fact that we would reach out to her Suboxone doctor tomorrow to attempt to figure out how he feels about the possibility of her having a very limited number of Klonopin for extreme anxiety. Otherwise we continue to discuss concerns about controlled substances. We will continue to discuss polypharmacy and the possibility of decreasing her medication once her psychosis resolved. Mental Status Exam MSE Comments: This is a well nourished, well developed white female in hospital scrubs with adequate grooming and limited eye contact. No abnormal movements except for mild psychomotor retardation, which is starting to improve. Cooperative with exam in mild distress. Speech was slightly decreased rate and volume. Mood described as anxious, but better, affect is congruent. Thought process, organized. Thought content: patient denies suicidal or homicidal ideation, she endorses paranoia but no delusions noted, and denies current auditory and visual hallucinations. Attention and concentration are intact and memory appeared mostly reliable but none were formally tested. She is alert and oriented x3. Insight and judgment are improving. Impulse control is limited. Vitals/I&O/Wt Last Vital Signs Temp 97.6 F 03/24/22 06:00 Pulse 78 03/24/22 06:00 Resp 16 03/24/22 06:00 BP 143/88 03/24/22 06:00 Pulse Ox 98 03/24/22 06:00 O2 Del Method 03/22/22 14:00 Weight last 48 hrs Weight 67.132 kg Data NPU : 03/22/22 09:48 03/22/22 09:48 A&P Assessment and plan (1) Fever: (2) Acute psychosis: (3) Methamphetamine use disorder, severe: Plan This is a 26 year old white female with a history of trauma, methamphetamine and past opiate use and genetic loading for mental health and addiction issues who presents after recent methamphetamine use reporting paranoia and hallucinations and having problems with her memory. 1. Continue current medications continuing Invega 6 mg p.o. daily for psychosis. Restarted lithium ER 450 mg bid. Other medications restarted but we will need to adjust medication and also consider any medications to discontinue to avoid significant polypharmacy. 2. Encourage individual, group and milieu therapy 3. Continue q-15 minute check for safety 4. Recommend sober living treatment at the highest level of care to which the patient is willing to commit. 5. 21-day hold granted. 6. Appreciate hospitalist consult will follow recommendations as indicated. Involuntary Hold Information 96 Hour Hold: 96 Hour Involuntary Admission: Yes 96 Hour Hold Ending Date: 03/14/22 Attestations NPU Medical Necessity Statement*: Inpatient hospitalization is medically necessary and the clinically appropriate intervention at this time. We will monitor medications and make changes as indicated. Likely length of stay is 6-9 days. Coding Level of Care Code Acute Behavioral Therapy Coordinator for [facility] Fwd Diagnoses Fever R50.9 Acute psychosis F23 Methamphetamine use disorder, severe F15.20
[2022-03-24] MEDS: escitalopram 10 mg Tablet PO (09:22)
[2022-03-24 14:00] VITALS: BP 99/58; PULSE 86; RESP 16; TEMP 36.6; O2SAT 96
--- NOTE | 2022-03-24 15:37 | P.PN_ITS ---
Subjective Subjective: She has remained afebrile and hemodynamically stable. No new complaints. Medications: Reviewed: Yes Vitals/I&O/Wt Last Vital Signs Temp 97.8 F 03/24/22 14:00 Pulse 86 03/24/22 14:00 Resp 16 03/24/22 14:00 BP 99/58 03/24/22 14:00 Pulse Ox 96 03/24/22 14:00 O2 Del Method 03/22/22 14:00 03/24/22 03/24/22 03/24/22 06:59 14:59 22:59 Intake Total 720 / 720 Balance 720 / 720 Weight last 48 hrs Weight 67.132 kg Physical Exam Narrative: General: No acute distress, AO x3 HEENT: PERRLA, pupils bilaterally equal and reactive, pallors not present Chest: Normal vesicular breath sounds, no added sounds, equal good air entry bilaterally CVS: S1-S2 regular, no murmurs, no tachycardia, no gallops, no rubs Abdomen: Soft, nontender, no organomegaly, bowel sounds present Neuro: No focal deficits, no facial deformity, AO x3, power 5/5 in all limbs Data : 03/22/22 09:48 03/22/22 09:48 A&P Assessment and plan (1) Fever: No further fever Leukocytosis is resolved UA positive, started levofloxacin empirically. Plan to complete a presumptive 5-day course on May 21 since patient clinically improved. Urine culture not reflexively running, as noted above. Blood culture negative thus far. Hepatitis C screen positive, PCR is negative consistent with prior hepatitis C infection which is currently cleared. COVID antigen negative. Chest x-ray without gross consolidation. No rashes arthralgias or joint swelling. Please call with any further questions or concerns. We will sign off at this time. Attestations Medical Necessity Statement*: per admitting Coding Level of Care Code Acute Power And Recovery Supervisor for Terence Lanza Diagnoses Fever R50.9
[2022-03-24 20:00] VITALS: BP 94/59; PULSE 73; RESP 16; TEMP 36.6; O2SAT 94
[2022-03-24] MEDS: buprenorphine-naloxone 4-1 mg Film 2 EACH SUBLINGUAL (21:01)
[2022-03-24] MEDS: trazodone 50 mg Tablet PO (21:05)
[2022-03-25] MEDS: nicotine 4 mg lozenge MUCOUS MEM ×3 (05:22→15:04)
[2022-03-25 06:00] VITALS: BP 122/83; PULSE 100; RESP 16; TEMP 36.8; O2SAT 95
[2022-03-25] MEDS: gabapentin 300 mg Capsule PO ×3 (07:49→21:11)
[2022-03-25] MEDS: paliperidone ER 6 mg Tablet PO (07:49)
[2022-03-25] MEDS: escitalopram 10 mg Tablet PO (07:49)
[2022-03-25] MEDS: lithium carbonate ER 450 mg Tablet PO ×2 (07:49→17:32)
--- NOTE | 2022-03-25 11:52 | W.PM.NPUPNS ---
Subjective NPU Subjective: Patient is a 26-year-old white female with a history of methamphetamine use admitted with psychosis with a history of manic symptoms. Patient reported that she had felt more jittery on Lexapro and wished to be placed back on Prozac to manage her anxiety. Patient had reported having chronic problems with anxiety that she states led to paranoia. She had endorsed a history of decreased need for sleep high energy and racing thoughts in the past and reports that she had been on lithium for several years. She reports that she had been in multiple inpatient rehabilitation programs throughout her life for methamphetamine use as well as for opiate addiction. She reports no cravings for opiates at this time. She was agreeable to considering dual diagnosis treatment. She had reported feeling somewhat sedated and reported that she felt that it was due to her Lexapro. The patient had complained of dry mouth and feeling excessively thirsty. Mental Status Exam MSE Comments: This is a well nourished, well developed white female in hospital scrubs with adequate grooming and limited eye contact. No abnormal movements except for mild psychomotor retardation. She was cooperative with exam in no acute distress. Speech was slightly decreased rate and volume. Mood described as nervous. Affect was anxious. Thought process was linear and organized. Thought content: patient denies suicidal or homicidal ideation, She endorses paranoia but no delusions noted, and denies current auditory and visual hallucinations. Attention and concentration are intact and memory appeared mostly reliable but none were formally tested. She is alert and oriented x3. Insight and judgment are limited. Impulse control is limited. Vitals/I&O/Wt Last Vital Signs Temp 98.3 F 03/25/22 06:00 Pulse 100 03/25/22 06:00 Resp 16 03/25/22 06:00 BP 122/83 03/25/22 06:00 Pulse Ox 95 03/25/22 06:00 O2 Del Method 03/22/22 14:00 Weight last 48 hrs Weight 67.132 kg Data NPU : 03/22/22 09:48 03/22/22 09:48 A&P Assessment and plan (1) Fever: (2) Acute psychosis: (3) Methamphetamine use disorder, severe: Plan This is a 26 year old white female with a history of trauma, methamphetamine and past opiate use and genetic loading for mental health and addiction issues who presents after recent methamphetamine use reporting paranoia and hallucinations and having problems with her memory. 1. Continue current medications continuing Invega 6 mg p.o. daily for psychosis. Continue lithium ER 450 mg bid, continue gabapentin for anxiety as prescribed. Other medications restarted but we will need to adjust medication and also consider any medications to discontinue to avoid significant polypharmacy. Discontinue Lexapro and restart Prozac 20mg daily. [place] level in am, basic metabolic panel, urinalysis. 2. Encourage individual, group and milieu therapy 3. Continue q-15 minute check for safety 4. Recommend sober living treatment at the highest level of care to which the patient is willing to commit. 5. 21-day hold granted. 6. Appreciate hospitalist consult will follow recommendations as indicated. Involuntary Hold Information 96 Hour Hold: 96 Hour Involuntary Admission: Yes 96 Hour Hold Ending Date: 03/14/22 Attestations NPU Medical Necessity Statement*: Inpatient hospitalization is medically necessary and the clinically appropriate intervention at this time. We will monitor medications and make changes as indicated. Likely length of stay is 6-9 days. Coding Level of Care Code Established Pt Acute Resident Care Aid for Terence Lanza Patient Type Established History Problem Focused Exam Problem Focused Medical Decision Making Straight Forward Diagnoses Fever R50.9 Acute psychosis F23 Methamphetamine use disorder, severe F15.20
[2022-03-25 14:00] VITALS: BP 90/63; PULSE 81; RESP 18; TEMP 36.6; O2SAT 95
[2022-03-25] MEDS: hyDROXYzine 25 mg Capsule 50 MG PO (16:02)
[2022-03-25] MEDS: nicotine 2 mg Gum BUCCAL (17:37)
[2022-03-25 20:22] VITALS: BP 126/86; PULSE 120; RESP 18; TEMP 36.7; O2SAT 97
[2022-03-25] MEDS: buprenorphine-naloxone 4-1 mg Film 2 EACH SUBLINGUAL (21:11)
[2022-03-25] MEDS: trazodone 50 mg Tablet PO (21:11)
[2022-03-26 06:00] VITALS: BP 111/76; PULSE 89; RESP 16; TEMP 36.7; O2SAT 94
[2022-03-26] MEDS: ibuprofen 600 mg Tablet PO (06:38)
[2022-03-26] MEDS: fluoxetine 20 mg Capsule PO (08:03)
[2022-03-26] MEDS: gabapentin 300 mg Capsule PO ×3 (08:03→20:32)
[2022-03-26] MEDS: nicotine 4 mg lozenge MUCOUS MEM ×3 (08:03→18:05)
[2022-03-26] MEDS: paliperidone ER 6 mg Tablet PO (08:03)
[2022-03-26] MEDS: lithium carbonate ER 450 mg Tablet PO ×2 (08:03→17:14)
[2022-03-26 08:17] LABS: Lithium 0.5 mmol/L (0.6-1.2)
[2022-03-26 08:19] LABS: Blood Urea Nitrogen 8 mg/dL (6-20); Calcium 9.1 mg/dL (8.5-10.5); Carbon Dioxide 25 mmol/L (22-29); Chloride 102 mmol/L (98-107); Glomerular Filtration Rate 101.1 mL/min (90-130); Glucose 117 mg/dL (65-115); Osmolality Calculated 281 mOsm/kg (285-295); Sodium 136 mmol/L (136-145); Thyroid Stimulating Hormone 3.77 uIU/mL (0.27-4.20)
[2022-03-26 09:15] LABS: Add Urine Microscopic? YES; Bilirubin Urine 1+ (Negative); Blood Urine 2+ (Negative); Glucose Urine UA Norm (Normal); Ketones Urine 1+ (Negative); Leukocyte Esterase Urine 2+ (Negative); Nitrate Urine Negative (Negative); Protein Urine 1+ (Negative); Urine Appearance Cloudy (CLEAR); Urine Color Yellow (Yellow); Urobilinogen Urine 1 mg/dL (Negative); pH Urine 5 (5-7)
[2022-03-26 09:45] LABS: Add Urine Culture? No; Bacteria Urine 2+ /hpf; Mucus Urine TRACE /hpf; Squamous Epithelial Cell Urine 25-40 /hpf (0-5); WBC Urine >100 /hpf (0-5)
[2022-03-26] MEDS: hyDROXYzine 25 mg Capsule 50 MG PO (12:32)
[2022-03-26 14:00] VITALS: BP 113/66; PULSE 95; RESP 18; TEMP 36.8; O2SAT 97
--- NOTE | 2022-03-26 17:19 | W.PM.NPUPNS ---
Subjective NPU Subjective: Patient is a 26-year-old white female with a history of methamphetamine use admitted with psychosis with a history of manic symptoms. The patient's lithium level was 0.5. She reported some reduction in anxiety on Prozac 20mg daily. Continue to minimize much of what had caused her to be hospitalized. She had reported that she wishes to return to live with her mother. The patient reported no cravings for opiates. She did not report any racing thoughts. She reported no suicidal thoughts. She reports that the voices have been quieter but are still present. Mental Status Exam MSE Comments: This is a well nourished, well developed white female in hospital scrubs with adequate grooming and limited eye contact. No abnormal movements except for mild psychomotor retardation. She was cooperative with exam in no acute distress. Speech was slightly decreased rate and volume. Mood described as okay. Affect was odd and superficially bright. Thought process was linear and organized. Thought content: patient denies suicidal or homicidal ideation, She reported auditory hallucinations and still showed evidence of paranoia. Attention and concentration are intact and memory appeared mostly reliable but none were formally tested. She is alert and oriented x3. Insight and judgment are limited. Impulse control is limited. Vitals/I&O/Wt Last Vital Signs Temp 98.2 F 03/26/22 14:00 Pulse 95 03/26/22 14:00 Resp 18 03/26/22 14:00 BP 113/66 03/26/22 14:00 Pulse Ox 97 03/26/22 14:00 O2 Del Method 03/25/22 14:00 Data NPU : 03/22/22 09:48 03/26/22 07:27 Micro: Microbiology 03/20/22 14:20 Blood Culture - Final Blood NO GROWTH AFTER 5 DAYS 03/20/22 14:18 Blood Culture - Final Blood NO GROWTH AFTER 5 DAYS Microbiology 03/20/22 14:20 Blood Blood Culture - Final NO GROWTH AFTER 5 DAYS 03/20/22 14:18 Blood Blood Culture - Final NO GROWTH AFTER 5 DAYS A&P Assessment and plan (1) Acute psychosis: (2) Methamphetamine use disorder, severe: (3) Fever: Plan This is a 26 year old white female with a history of trauma, methamphetamine and past opiate use and genetic loading for mental health and addiction issues who presents after recent methamphetamine use reporting paranoia and hallucinations and having problems with her memory. 1. Continue current medications. increase Invega 9 mg p.o. daily for psychosis. Continue lithium ER 450 mg bid, continue gabapentin for anxiety as prescribed. Discontinue Continue Prozac 20mg daily. 2. Encourage individual, group and milieu therapy 3. Continue q-15 minute check for safety 4. Recommend sober living treatment at the highest level of care to which the patient is willing to commit. 5. 21-day hold granted. 6. Appreciate hospitalist consult will follow recommendations as indicated. Involuntary Hold Information 96 Hour Hold: 96 Hour Involuntary Admission: Yes 96 Hour Hold Ending Date: 03/14/22 Attestations NPU Medical Necessity Statement*: Inpatient hospitalization is medically necessary and the clinically appropriate intervention at this time. We will monitor medications and make changes as indicated. Likely length of stay is 6-9 days. Coding Level of Care Code Established Pt Acute Supervisor Customer Records Division for Terence Lanza Patient Type Established History Problem Focused Exam Problem Focused Medical Decision Making Straight Forward Diagnoses Acute psychosis F23 Methamphetamine use disorder, severe F15.20 Fever R50.9
[2022-03-26] MEDS: haloperidol 5 mg Tablet PO (18:11)
--- NOTE | 2022-03-26 18:18 | PC.NURSE ---
Patient has reported Auditory and visual hallucinations. Says that she has had them throughout the day, but didn't report them as they weren't severe or bothering her. She knows they aren't real because they are of people that she knows who have . The hallucinations are not instructing her ot harm herself or others, but are now causing anxiety. Nurse administered PRN po haldol.
[2022-03-26] MEDS: buprenorphine-naloxone 4-1 mg Film 2 EACH SUBLINGUAL (20:32)
[2022-03-26] MEDS: trazodone 50 mg Tablet PO (20:32)
[2022-03-26 22:00] VITALS: BP 107/71; PULSE 92; RESP 18; TEMP 36.9; O2SAT 96
[2022-03-27 06:00] VITALS: BP 111/74; PULSE 81; RESP 16; TEMP 37; O2SAT 92
[2022-03-27] MEDS: nicotine 4 mg lozenge MUCOUS MEM ×2 (07:06→14:31)
[2022-03-27] MEDS: paliperidone 3 MG, paliperidone 6 MG 9 MG PO (08:07)
[2022-03-27] MEDS: lithium carbonate ER 450 mg Tablet PO ×2 (08:07→20:19)
[2022-03-27] MEDS: gabapentin 300 mg Capsule PO ×3 (08:08→20:19)
[2022-03-27] MEDS: fluoxetine 20 mg Capsule PO (08:08)
[2022-03-27 14:00] VITALS: BP 105/73; PULSE 102; RESP 17; TEMP 36.8; O2SAT 97
[2022-03-27] MEDS: ibuprofen 600 mg Tablet PO (15:29)
--- NOTE | 2022-03-27 18:12 | W.PM.NPUPNS ---
Subjective NPU Subjective: Patient is a 26-year-old white female with a history of methamphetamine use admitted with psychosis with a history of manic symptoms along with depression. The patient had reported that she is awaiting a guardianship hearing on April 02. She reports that she has been feeling better. She reported no current side effects from her medication. She reported that her thoughts had been more clear although she still stated that she was distracted at times by noises in my head . She had reported a history of treatment for mood fluctuations in the past and stated that she wishes to live with her mother once she has left ear. Mental Status Exam MSE Comments: This is a well nourished, well developed white female in hospital scrubs with adequate grooming and limited eye contact. No abnormal movements except for mild psychomotor retardation. She was cooperative with exam in no acute distress. Speech was normal rate and normal volume. Mood described as better. Affect remained superficially bright. Thought process was linear and organized. Thought content: patient denies suicidal or homicidal ideation, She reported auditory hallucinations with less paranoia appreciated. Attention and concentration are intact and memory appeared mostly reliable but none were formally tested. She is alert and oriented x3. Insight and judgment are limited. Impulse control is limited. Vitals/I&O/Wt Last Vital Signs Temp 98.3 F 03/27/22 14:00 Pulse 102 H 03/27/22 14:00 Resp 17 03/27/22 14:00 BP 105/73 03/27/22 14:00 Pulse Ox 97 03/27/22 14:00 O2 Del Method 03/27/22 06:00 Data NPU : 03/22/22 09:48 03/26/22 07:27 A&P Assessment and plan (1) Psychotic disorder: (2) Acute psychosis: (3) Methamphetamine use disorder, severe: (4) Fever: Plan This is a 26 year old white female with a history of trauma, methamphetamine and past opiate use and genetic loading for mental health and addiction issues who presents after recent methamphetamine use reporting paranoia and hallucinations and having problems with her memory. 1. Continue Invega 9 mg p.o. daily for psychosis. Continue lithium ER 450 mg bid, continue gabapentin for anxiety as prescribed. Continue Prozac 20mg daily. 2. Encourage individual, group and milieu therapy 3. Continue q-15 minute check for safety 4. Recommend sober living treatment at the highest level of care to which the patient is willing to commit. 5. 21-day hold granted. 6. Guardianship hearing pending. Involuntary Hold Information 96 Hour Hold: 96 Hour Involuntary Admission: Yes 96 Hour Hold Ending Date: 03/14/22 Attestations NPU Medical Necessity Statement*: Inpatient hospitalization is medically necessary and the clinically appropriate intervention at this time. We will monitor medications and make changes as indicated with likely length of stay is 8-10 days. Coding Level of Care Code Established Pt Acute Transportation Technician for Chg Fwd Patient Type Established History Problem Focused Exam Problem Focused Medical Decision Making Straight Forward Diagnoses Psychotic disorder F29 Acute psychosis F23 Methamphetamine use disorder, severe F15.20 Fever R50.9
[2022-03-27] MEDS: buprenorphine-naloxone 4-1 mg Film 2 EACH SUBLINGUAL (20:19)
[2022-03-27] MEDS: trazodone 50 mg Tablet PO (20:19)
[2022-03-27 20:30] VITALS: BP 102/71; PULSE 77; RESP 17; TEMP 36.6; O2SAT 97
[2022-03-28 06:00] VITALS: BP 110/69; PULSE 77; RESP 16; TEMP 36.7; O2SAT 95
[2022-03-28] MEDS: acetaminophen 325 mg Tablet 650 MG PO (06:42)
[2022-03-28] MEDS: gabapentin 300 mg Capsule PO ×3 (08:01→19:53)
[2022-03-28] MEDS: paliperidone 3 MG, paliperidone 6 MG 9 MG PO (08:01)
[2022-03-28] MEDS: lithium carbonate ER 450 mg Tablet PO ×2 (08:01→19:53)
[2022-03-28] MEDS: fluoxetine 20 mg Capsule PO (08:01)
[2022-03-28] MEDS: nicotine 4 mg lozenge MUCOUS MEM ×3 (08:08→20:03)
[2022-03-28 14:00] VITALS: BP 116/69; PULSE 91; RESP 18; TEMP 36.6; O2SAT 95
--- NOTE | 2022-03-28 17:11 | P.NPUPN_ITS ---
Subjective NPU Subjective: Patient is a 26-year-old white female with a history of methamphetamine use admitted with psychosis with a history of manic symptoms along with depression. The patient had reported that she is awaiting a guardianship hearing on April 02. She reports no side effects from her medications currently. She reports that she wishes to return to live with her mother after guardianship. The patient had admitted to significant decline in her mood and the presence of worsening psychosis with the use of methamphetamine. Patient reported that she has been hearing voices but they are less intense at this time. She has been engaged in individual and milieu therapy on the unit. Mental Status Exam MSE Comments: This is a well nourished, well developed white female in hospital scrubs with adequate grooming and limited eye contact. No abnormal movements except for mild psychomotor retardation. She was cooperative with exam in no acute distress. Speech was normal rate and normal volume. Mood was described as good. Affect remained superficial. Thought process was linear and organized. Thought content: patient denies suicidal or homicidal ideation, She reported auditory hallucinations with less paranoia appreciated. Attention and concentration are intact and memory appeared mostly reliable but none were formally tested. She is alert and oriented x3. Insight was poor. Judgment are limited. Impulse control is limited. Vitals/I&O/Wt Last Vital Signs Temp 98 F 03/28/22 14:00 Pulse 91 03/28/22 14:00 Resp 18 03/28/22 14:00 BP 116/69 03/28/22 14:00 Pulse Ox 95 03/28/22 14:00 O2 Del Method 03/28/22 14:00 Data NPU : 03/22/22 09:48 03/26/22 07:27 A&P Assessment and plan (1) Psychotic disorder: (2) Acute psychosis: (3) Methamphetamine use disorder, severe: (4) Fever: Plan This is a 26 year old white female with a history of trauma, methamphetamine and past opiate use and genetic loading for mental health and addiction issues who presents after recent methamphetamine use reporting paranoia and hallucinations and having problems with her memory. 1. Continue Invega 9 mg p.o. daily for psychosis. Continue lithium ER 450 mg bid, continue gabapentin for anxiety as prescribed. Continue Prozac 20mg daily. 2. Encourage individual, group and milieu therapy 3. Continue q-15 minute check for safety 4. Recommend sober living treatment at the highest level of care to which the patient is willing to commit. 5. 21-day hold granted. 6. Guardianship hearing pending. Involuntary Hold Information 96 Hour Hold: 96 Hour Involuntary Admission: Yes 96 Hour Hold Ending Date: 03/14/22 Attestations NPU Medical Necessity Statement*: Inpatient hospitalization is medically necessary and the clinically appropriate intervention at this time. We will monitor medications and make changes as indicated with likely length of stay is 8-10 days. Coding Level of Care Code Established Pt Acute Real Estate Agency Principal for Chg Fwd Patient Type Established History Problem Focused Exam Problem Focused Medical Decision Making Straight Forward Diagnoses Psychotic disorder F29 Acute psychosis F23 Methamphetamine use disorder, severe F15.20 Fever R50.9
[2022-03-28] MEDS: haloperidol 5 mg Tablet PO (19:53)
[2022-03-28] MEDS: trazodone 50 mg Tablet PO (19:54)
[2022-03-28] MEDS: buprenorphine-naloxone 4-1 mg Film 2 EACH SUBLINGUAL (19:54)
[2022-03-28] MEDS: hyDROXYzine 25 mg Capsule 50 MG PO (21:21)
[2022-03-28 21:54] VITALS: BP 115/79; PULSE 101; RESP 17; TEMP 36.9; O2SAT 95
[2022-03-29] MEDS: OLANZapine 5 mg ODT PO (01:21)
[2022-03-29] MEDS: ibuprofen 600 mg Tablet PO (01:21)
[2022-03-29 06:00] VITALS: BP 109/66; PULSE 78; RESP 16; TEMP 37; O2SAT 94
[2022-03-29 07:35] LABS: Lithium 0.7 mmol/L (0.6-1.2)
[2022-03-29] MEDS: paliperidone 3 MG, paliperidone 6 MG 9 MG PO (09:22)
[2022-03-29] MEDS: fluoxetine 20 mg Capsule PO (09:22)
[2022-03-29] MEDS: gabapentin 300 mg Capsule PO ×3 (09:22→20:19)
[2022-03-29] MEDS: lithium carbonate ER 450 mg Tablet PO ×2 (09:23→20:19)
[2022-03-29] MEDS: nicotine 2 mg Gum BUCCAL (09:50)
[2022-03-29] MEDS: nicotine 4 mg lozenge MUCOUS MEM (11:42)
[2022-03-29 14:00] VITALS: BP 117/70; PULSE 104; RESP 16; TEMP 36.6; O2SAT 96
--- NOTE | 2022-03-29 16:33 | W.PM.NPUPNS ---
Subjective NPU Subjective: Patient is a 26-year-old white female with a history of methamphetamine use admitted with psychosis with a history of manic symptoms along with depression. The patient had reported that she is awaiting a guardianship hearing on April 02. She had reported the auditory hallucinations were less distracting to her. She reports that she is motivated to remain sober. She continued to minimize much of her previous troubles having occurred from substance abuse use along with her chronic mental illness. She reported diminished anxiety on the Prozac. She denied any feelings of hopelessness or worthlessness. She reported that her depression has been better and minimized any manic symptoms currently. Mental Status Exam MSE Comments: This is a well nourished, well developed white female in hospital scrubs with adequate grooming and limited eye contact. No abnormal movements except for mild psychomotor retardation. She was cooperative with exam in no acute distress. Speech was normal rate and normal volume. Mood was described as good.. Affect remained superficial but pleasant. Thought process was linear and organized. Thought content: patient denies suicidal or homicidal ideation, She reported auditory hallucinations. There was some continued evidence of paranoia. Attention and concentration are intact and memory appeared mostly reliable but none were formally tested. She is alert and oriented x3. Insight was poor. Judgment are limited. Impulse control is limited. Vitals/I&O/Wt Last Vital Signs Temp 98 F 03/29/22 14:00 Pulse 104 H 03/29/22 14:00 Resp 16 03/29/22 14:00 BP 117/70 03/29/22 14:00 Pulse Ox 96 03/29/22 14:00 O2 Del Method 03/29/22 14:00 Data NPU : 03/22/22 09:48 03/26/22 07:27 A&P Assessment and plan (1) Psychotic disorder: (2) Acute psychosis: (3) Methamphetamine use disorder, severe: (4) Fever: Plan This is a 26 year old white female with a history of trauma, methamphetamine and past opiate use and genetic loading for mental health and addiction issues who presents after recent methamphetamine use reporting paranoia and hallucinations and having problems with extremely poor decision making. 1. Continue Invega 9 mg p.o. daily for psychosis. Continue lithium ER 450 mg bid, continue gabapentin 1200mg/day for anxiety as prescribed. Continue Prozac 20mg daily target depression, 2. Encourage individual, group and milieu therapy 3. Continue q-15 minute check for safety 4. Recommend sober living treatment at the highest level of care to which the patient is willing to commit. 5. 21-day hold granted. 6. Guardianship hearing scheduled next week. Involuntary Hold Information 96 Hour Hold: 96 Hour Involuntary Admission: Yes 96 Hour Hold Ending Date: 03/14/22 Attestations NPU Medical Necessity Statement*: Inpatient hospitalization is medically necessary and the clinically appropriate intervention at this time. We will monitor medications and make changes as indicated with likely length of stay is 8-10 days. 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
[2022-03-29] MEDS: trazodone 50 mg Tablet PO (20:19)
[2022-03-29] MEDS: buprenorphine-naloxone 4-1 mg Film 2 EACH SUBLINGUAL (20:54)
[2022-03-29 21:40] VITALS: RESP 18
[2022-03-30 06:00] VITALS: BP 95/54; PULSE 71; RESP 17; O2SAT 96
[2022-03-30] MEDS: gabapentin 300 mg Capsule PO ×2 (08:44→14:59)
[2022-03-30] MEDS: paliperidone 3 MG, paliperidone 6 MG 9 MG PO (08:45)
[2022-03-30] MEDS: lithium carbonate ER 450 mg Tablet PO ×2 (08:45→20:35)
[2022-03-30] MEDS: fluoxetine 20 mg Capsule PO (08:45)
[2022-03-30] MEDS: nicotine 4 mg lozenge MUCOUS MEM ×3 (08:46→15:44)
--- NOTE | 2022-03-30 08:57 | PC.NURSE ---
Behavioral Assessment Patient sitting up, resting in bed. Patient denies HI/SI and AH/VH. Patient does state she feels a little anxious and rates it at a 4/10. She states she has been seeing orbs right before she goes to bed but that the haldol has been doing a good job making it go away. Patient is calm and cooperative. No distress noted.
[2022-03-30] MEDS: OLANZapine 5 mg ODT PO (10:22)
--- NOTE | 2022-03-30 10:48 | PC.NURSE ---
PRN MEDS Patient came to nurse's desk stating her anxiety was increasing to a 5/10. Zyprexa given at 1022.
--- NOTE | 2022-03-30 13:15 | W.PM.NPUPNS ---
Subjective NPU Subjective: Patient is a 26-year-old white female with a history of methamphetamine use admitted with psychosis with a history of manic symptoms along with depression. And reported no side effect from medication. She had complained of visual auras around various objects. He had endorsed significant history of hallucination use in the past. She reported no cravings or withdrawal symptoms at the time. That she would be agreeable to considering intramuscular shot soon as available. Voices were less prominent today. Neck symptoms currently. Reports some anxiety at this time Mental Status Exam MSE Comments: This is a well nourished, well developed white female in hospital scrubs with adequate grooming and limited eye contact. No abnormal movements except for mild psychomotor retardation. She was cooperative with exam in no acute distress. Speech was normal rate and normal volume. Mood was described as good.. Affect was brighter. Thought process was linear and organized. Thought content: patient denies suicidal or homicidal ideation, She reported auditory hallucinations with reports of visual auras. There was some continued evidence of paranoia. Attention and concentration are intact and memory appeared mostly reliable but none were formally tested. She is alert and oriented x3. Insight was poor. Judgment is limited. Impulse control is limited. Vitals/I&O/Wt Last Vital Signs Temp 97 F L 03/30/22 14:00 Pulse 108 H 03/30/22 14:00 Resp 16 03/30/22 14:00 BP 124/85 03/30/22 14:00 Pulse Ox 98 03/30/22 14:00 O2 Del Method 03/30/22 14:00 Data NPU : 03/22/22 09:48 03/26/22 07:27 Micro: Microbiology 03/28/22 08:16 Urine Culture - Final Urine,Clean Catch Microbiology 03/28/22 08:16 Urine,Clean Catch Urine Culture - Final A&P Assessment and plan (1) Psychotic disorder: (2) Acute psychosis: (3) Methamphetamine use disorder, severe: (4) Fever: Plan This is a 26 year old white female with a history of trauma, methamphetamine and past opiate use and genetic loading for mental health and addiction issues who presents after recent methamphetamine use reporting paranoia and hallucinations and having problems with extremely poor decision making. 1. Continue Prozac 20mg daily target depression, invega 9mg daily with plan to begin invega im tommorow, continue lithium. 2. Encourage individual, group and milieu therapy 3. Continue q-15 minute check for safety 4. Recommend sober living treatment at the highest level of care to which the patient is willing to commit. 5. 21-day hold granted. 6. Guardianship hearing scheduled next week. Involuntary Hold Information 96 Hour Hold: 96 Hour Involuntary Admission: Yes 96 Hour Hold Ending Date: 03/14/22 Attestations NPU Medical Necessity Statement*: Inpatient hospitalization is medically necessary and the clinically appropriate intervention at this time. We will monitor medications and make changes as indicated with likely length of stay is 8-10 days. 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
[2022-03-30 14:00] VITALS: BP 124/85; PULSE 108; RESP 16; TEMP 36.1; O2SAT 98
[2022-03-30] MEDS: hyDROXYzine 25 mg Capsule 50 MG PO (17:12)
--- NOTE | 2022-03-30 17:13 | PC.NURSE ---
PRN MEDS PATIENT EXPRESSES ANXIETY AT A 6. ADMINISTERED VISTARIL AT 1712.
[2022-03-30] MEDS: ibuprofen 600 mg Tablet PO (17:25)
[2022-03-30] MEDS: buprenorphine-naloxone 4-1 mg Film 2 EACH SUBLINGUAL (17:54)
[2022-03-30] MEDS: gabapentin 300 mg Capsule 600 MG PO (18:34)
[2022-03-30] MEDS: benztropine 1 mg Tablet PO (18:51)
[2022-03-30 19:54] VITALS: BP 98/67; PULSE 104; RESP 15; TEMP 37.1; O2SAT 97
[2022-03-30] MEDS: simethicone 80 mg Chew PO (20:35)
[2022-03-30] MEDS: trazodone 50 mg Tablet PO (20:37)
[2022-03-31 06:00] VITALS: BP 112/71; PULSE 86; RESP 16; TEMP 36.8; O2SAT 95
[2022-03-31] MEDS: ibuprofen 600 mg Tablet PO (06:18)
[2022-03-31] MEDS: paliperidone 3 MG, paliperidone 6 MG 9 MG PO (08:17)
[2022-03-31] MEDS: gabapentin 300 mg Capsule 600 MG PO ×2 (08:18→17:35)
[2022-03-31] MEDS: lithium carbonate ER 450 mg Tablet PO ×2 (08:18→19:26)
[2022-03-31] MEDS: fluoxetine 20 mg Capsule PO (08:19)
[2022-03-31] MEDS: benztropine 1 mg Tablet PO (08:24)
[2022-03-31] MEDS: nicotine 4 mg lozenge MUCOUS MEM (08:24)
[2022-03-31] MEDS: OLANZapine 5 mg ODT PO (10:13)
[2022-03-31] MEDS: paliperidone palmitate 234 mg Syringe IM (12:35)
--- NOTE | 2022-03-31 12:41 | P.NPUPN_ITS ---
Subjective NPU Subjective: Patient is a 26-year-old white female with a history of methamphetamine use admitted with psychosis with a history of manic symptoms along with depression. She had reported requiring PHLEBOTOMY SUPPORT TECH Zyprexa this morning for anxiety. She had reported a history of panic attacks in the past a few times a month. She reported no visual hallucinations today but reported having auditory hallucinations that were intermittent over the past day. She reported no side effects from her medication. Patient had reported some difficulties at times with sleep. She states that she was ready to begin her intramuscular Invega sustenna today. Mental Status Exam MSE Comments: This is a well nourished, well developed white female in hospital scrubs with adequate grooming and limited eye contact. No abnormal movements except for mild psychomotor retardation. She was cooperative with exam in no acute distress. Speech was normal rate and normal volume. Mood was described as anxious.. Affect was mood congruent. Thought process was linear and organized. Thought content: patient denies suicidal or homicidal ideation, She reported auditory hallucinations with no report of visual hallucinations today. There was some continued evidence of paranoia. Attention and concentration are intact and memory appeared mostly reliable but none were formally tested. She is alert and oriented x3. Insight was poor. Judgment is limited. Impulse control is limited. Vitals/I&O/Wt Last Vital Signs Temp 98.3 F 03/31/22 06:00 Pulse 86 03/31/22 06:00 Resp 16 03/31/22 06:00 BP 112/71 03/31/22 06:00 Pulse Ox 95 03/31/22 06:00 O2 Del Method 03/31/22 06:00 Weight last 48 hrs Weight 70.534 kg Data NPU : 03/22/22 09:48 03/26/22 07:27 Micro: Microbiology 03/28/22 08:16 Urine Culture - Final Urine,Clean Catch Microbiology 03/28/22 08:16 Urine,Clean Catch Urine Culture - Final A&P Assessment and plan (1) Psychotic disorder: (2) Acute psychosis: (3) Methamphetamine use disorder, severe: (4) Fever: Plan This is a 26 year old white female with a history of trauma, methamphetamine and past opiate use and genetic loading for mental health and addiction issues who presents after recent methamphetamine use reporting paranoia and hallucinations and having problems with extremely poor decision making. 1. Continue Prozac 20mg daily target depression, invega 9mg daily with plan to begin invega Sustenna Im today, continue lithium. 2. Encourage individual, group and milieu therapy 3. Continue q-15 minute check for safety 4. Recommend sober living treatment at the highest level of care to which the patient is willing to commit. 5. 21-day hold granted. 6. Guardianship hearing scheduled next week. Involuntary Hold Information 96 Hour Hold: 96 Hour Involuntary Admission: Yes 96 Hour Hold Ending Date: 03/14/22 Attestations NPU Medical Necessity Statement*: Inpatient hospitalization is medically necessary and the clinically appropriate intervention at this time. We will monitor medications and make changes as indicated with likely length of stay is 8-10 days. 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
--- NOTE | 2022-03-31 12:46 | PC.NURSE ---
Administered Invega 234mg IM in Right Deltoid, pt tolerated well.
[2022-03-31 14:00] VITALS: BP 110/72; PULSE 76; RESP 16; O2SAT 96
[2022-03-31] MEDS: buprenorphine-naloxone 4-1 mg Film 2 EACH SUBLINGUAL (17:35)
[2022-03-31] MEDS: nicotine 2 mg Gum BUCCAL (19:26)
[2022-03-31] MEDS: trazodone 50 mg Tablet PO (19:26)
[2022-03-31 21:33] VITALS: BP 102/56; PULSE 109; RESP 16; TEMP 36.9; O2SAT 96
[2022-04-01] MEDS: ibuprofen 600 mg Tablet PO ×3 (03:26→20:01)
[2022-04-01] MEDS: hyDROXYzine 25 mg Capsule 50 MG PO ×2 (03:47→15:32)
[2022-04-01 06:00] VITALS: BP 108/64; PULSE 67; RESP 15; TEMP 36.8; O2SAT 94
[2022-04-01] MEDS: gabapentin 300 mg Capsule 600 MG PO ×2 (08:01→17:12)
[2022-04-01] MEDS: lithium carbonate ER 450 mg Tablet PO ×2 (08:01→20:01)
[2022-04-01] MEDS: fluoxetine 20 mg Capsule PO (08:01)
[2022-04-01] MEDS: nicotine 2 mg Gum BUCCAL (08:04)
[2022-04-01] MEDS: OLANZapine 5 mg ODT PO (09:17)
[2022-04-01] MEDS: ondansetron 4 MG Tablet PO (09:52)
[2022-04-01] MEDS: haloperidol 5 mg Tablet PO (12:08)
[2022-04-01] MEDS: acetaminophen 325 mg Tablet 650 MG PO (12:09)
[2022-04-01 14:00] VITALS: BP 118/73; PULSE 89; RESP 16; TEMP 37.1; O2SAT 95
[2022-04-01] MEDS: nicotine 4 mg lozenge MUCOUS MEM (15:33)
[2022-04-01] MEDS: buprenorphine-naloxone 4-1 mg Film 2 EACH SUBLINGUAL (17:12)
--- NOTE | 2022-04-01 17:59 | P.NPUPN_ITS ---
Subjective NPU Subjective: Patient is a 26-year-old white female with a history of methamphetamine use admitted with psychosis with a history of manic symptoms along with depression. Patient reported no cravings or withdrawals for opiates. She reported that the hallucinations had been diminishing. She continued to re port desire to pursue having her parents as a guardian. She continued to isolate herself in her room. She had reported feeling tired and anxious today. She had reported having a panic attack and was informed that she could ask for Ativan on occasion to manage her anxiety attacks. Mental Status Exam MSE Comments: This is a well nourished, well developed white female in hospital scrubs with adequate grooming and limited eye contact. No abnormal movements except for mild psychomotor retardation. She was cooperative with exam in no acute distress. Speech was normal rate and normal volume. Mood was described as anxious. Affect was mood congruent. Thought process was linear and organized. Thought content: patient denies suicidal or homicidal ideation, there was no clear evidence of delusional thinking. She did not appear to be responding to internal stimuli. Her attention and concentration appeared grossly intact. Her insight was limited her judgment was poor impulse control appeared limited. Vitals/I&O/Wt Last Vital Signs Temp 98.7 F 04/01/22 14:00 Pulse 89 04/01/22 14:00 Resp 16 04/01/22 14:00 BP 118/73 04/01/22 14:00 Pulse Ox 95 04/01/22 14:00 O2 Del Method 04/01/22 14:00 Weight last 48 hrs Weight 70.534 kg Data NPU : 03/22/22 09:48 03/26/22 07:27 A&P Assessment and plan (1) Psychotic disorder: (2) Acute psychosis: (3) Methamphetamine use disorder, severe: (4) Fever: Plan This is a 26 year old white female with a history of trauma, methamphetamine and past opiate use and genetic loading for mental health and addiction issues who presents after recent methamphetamine use reporting paranoia and hallucinations and having problems with extremely poor decision making. 1. Continue Prozac 20mg daily target depression, Invega sustenna given, continue lithium. 2. Encourage individual, group and milieu therapy 3. Continue q-15 minute check for safety 4. Recommend sober living treatment at the highest level of care to which the patient is willing to commit. 5. 21-day hold granted. 6. Guardianship hearing scheduled next week. Involuntary Hold Information 96 Hour Hold: 96 Hour Involuntary Admission: Yes 96 Hour Hold Ending Date: 03/14/22 Attestations NPU Medical Necessity Statement*: Inpatient hospitalization is medically necessary and the clinically appropriate intervention at this time. We will monitor medications and make changes as indicated with likely length of stay is 8-10 days. 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
[2022-04-01] MEDS: trazodone 50 mg Tablet PO ×2 (20:01→22:59)
[2022-04-01 21:14] VITALS: BP 102/62; PULSE 72; RESP 15; TEMP 36.7; O2SAT 95
[2022-04-02] MEDS: hyDROXYzine 25 mg Capsule 50 MG PO (03:59)
[2022-04-02 06:00] VITALS: BP 106/69; PULSE 68; RESP 17; TEMP 36.4; O2SAT 97
[2022-04-02] MEDS: nicotine 4 mg lozenge MUCOUS MEM ×2 (07:36→11:30)
[2022-04-02] MEDS: fluoxetine 20 mg Capsule PO (08:11)
[2022-04-02] MEDS: gabapentin 300 mg Capsule 600 MG PO ×2 (08:11→17:13)
[2022-04-02] MEDS: ibuprofen 600 mg Tablet PO ×2 (08:11→19:35)
[2022-04-02] MEDS: lithium carbonate ER 450 mg Tablet PO ×2 (08:11→19:34)
[2022-04-02] MEDS: OLANZapine 5 mg ODT PO (13:42)
[2022-04-02 14:00] VITALS: RESP 16
[2022-04-02] MEDS: LORazepam 1 mg Tablet PO (14:07)
--- NOTE | 2022-04-02 15:56 | P.NPUPN_ITS ---
Subjective NPU Subjective: Patient is a 26-year-old white female with a history of methamphetamine use admitted with psychosis with a history of manic symptoms along with depression. Patient reported no cravings or withdrawals for opiates. She reported that the hallucinations had been diminishing. She reports no feel ings of hopelessness. She had isolated herself on the milieu today. She reports feeling less anxious with the Prozac. She reported no cravings for opiates or for methamphetamines. Patient had been able to complete activities of daily living without prompting. She continues to report that she wishes to return home under guardianship of her mother. Mental Status Exam MSE Comments: This is a well nourished, well developed white female in hospital scrubs with adequate grooming and limited eye contact. She was lying in bed. No abnormal movements except for mild psychomotor retardation. She was c ooperative with exam in no acute distress. Speech was normal rate and normal volume. Mood was described as anxious. Affect was mood congruent. Thought process was linear and organized. Thought content: patient denies suicidal or homicidal ideation, there was no clear evidence of delusional thinking. She did not appear to be responding to internal stimuli. Her attention and concentration appeared grossly intact. Her insight was limited her judgment was poor impulse control appeared limited. Vitals/I&O/Wt Last Vital Signs Temp 97.6 F 04/02/22 06:00 Pulse 68 04/02/22 06:00 Resp 17 04/02/22 06:00 BP 106/69 04/02/22 06:00 Pulse Ox 97 04/02/22 06:00 O2 Del Method 04/02/22 06:00 04/02/22 04/02/22 04/02/22 06:59 14:59 22:59 Intake Total 1440 / 1440 Balance 1440 / 1440 Data NPU : 03/22/22 09:48 03/26/22 07:27 A&P Assessment and plan (1) Psychotic disorder: (2) Acute psychosis: (3) Methamphetamine use disorder, severe: (4) Fever: Plan This is a 26 year old white female with a history of trauma, methamphetamine and past opiate use and genetic loading for mental health and addiction issues who presents after recent methamphetamine use reporting paranoia and hallucinations and having problems with extremely poor decision making. 1. Increase Prozac 30mg daily target depression, Invega sustenna given, continue lithium. 2. Encourage individual, group and milieu therapy 3. Continue q-15 minute check for safety 4. Recommend sober living treatment at the highest level of care to which the patient is willing to commit. 5. 21-day hold granted. 6. Guardianship hearing scheduled next week. Involuntary Hold Information 96 Hour Hold: 96 Hour Involuntary Admission: Yes 96 Hour Hold Ending Date: 03/14/22 Attestations NPU Medical Necessity Statement*: Inpatient hospitalization is medically necessary and the clinically appropriate intervention at this time. We will monitor medications and make changes as indicated with likely length of stay is 8-10 days. 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
[2022-04-02] MEDS: buprenorphine-naloxone 4-1 mg Film 2 EACH SUBLINGUAL (17:13)
--- NOTE | 2022-04-02 17:28 | PC.OT ---
OT group note addendum: During group a male peer handed pt what looked to be a folded up scrub top. After investigation it was discovered to be some of males street clothes (pair of shorts,t shirt and socks) wrapped in the scrub top. Clothing was taken and put in pts personal belongings tub.
[2022-04-02] MEDS: trazodone 50 mg Tablet PO (19:34)
[2022-04-02 19:37] LABS: Glucose Point of Care 100 mg/dL (70-110)
[2022-04-02 20:48] VITALS: BP 111/69; PULSE 76; RESP 15; TEMP 36.4; O2SAT 95
[2022-04-03 06:00] VITALS: BP 116/73; PULSE 62; RESP 17; TEMP 36.7; O2SAT 96
[2022-04-03] MEDS: fluoxetine 20 mg Capsule PO (08:05)
[2022-04-03] MEDS: gabapentin 300 mg Capsule 600 MG PO ×2 (08:05→17:00)
[2022-04-03] MEDS: nicotine 4 mg lozenge MUCOUS MEM ×2 (08:05→16:19)
[2022-04-03] MEDS: OLANZapine 5 mg ODT PO (08:05)
[2022-04-03] MEDS: lithium carbonate ER 450 mg Tablet PO ×2 (08:05→20:13)
[2022-04-03] MEDS: ibuprofen 600 mg Tablet PO (08:05)
[2022-04-03 14:00] VITALS: BP 114/77; PULSE 95; RESP 18; TEMP 36.8; O2SAT 98
--- NOTE | 2022-04-03 14:49 | P.NPUPN_ITS ---
Subjective NPU Subjective: Patient is a 26-year-old white female with a history of methamphetamine use admitted with psychosis with a history of manic symptoms along with depression. She had reported no cravings for opiates at this time. She reported that the voices had been less distracting. She had stated that she had been frustrated after a difficult conversation with her parents. She states that she has been informed that her mother wishes to have her placed in a facility rather than returning home. She reported that she had difficulties with tolerating the lack of freedom but reports that she understood her mother's perspective. She had reported having run away from her mother's care before leading to significant consequences for the patient. She reports feeling less anxious with the Prozac. She reported no cravings for opiates or for methamphetamines. Patient had been able to complete activities of daily living without prompting. She continues to report that she wishes to return home under guardianship of her mother. She was able to attend groups and individual therapy today. Mental Status Exam MSE Comments: This is a well nourished, well developed white female in hospital scrubs with adequate grooming and good eye contact. No abnormal involuntary motor movements appreciated. She was cooperative with exam in no acute distress. Speech was normal rate and normal volume. Mood was described as anxious. Affect was mood congruent. Thought process was linear and organized. Thought content: patient denies suicidal or homicidal ideation, there was no clear evidence of delusional thinking. She did not appear to be responding to internal stimuli. Her attention and concentration appeared grossly intact. Her insight was limited. her judgment was poor. impulse control appeared limited. Vitals/I&O/Wt Last Vital Signs Temp 98.0 F 04/03/22 06:00 Pulse 62 04/03/22 06:00 Resp 17 04/03/22 06:00 BP 116/73 04/03/22 06:00 Pulse Ox 96 04/03/22 06:00 O2 Del Method 04/03/22 06:00 Data NPU : 03/22/22 09:48 03/26/22 07:27 A&P Assessment and plan (1) Psychotic disorder: (2) Acute psychosis: (3) Methamphetamine use disorder, severe: (4) Fever: Plan This is a 26 year old white female with a history of trauma, methamphetamine and past opiate use and genetic loading for mental health and addiction issues who presents after recent methamphetamine use reporting paranoia and hallucinations and having problems with extremely poor decision making. 1. Increase Prozac 30mg daily target depression, Invega sustenna given, continue lithium as prescribed. 2. Encourage individual, group and milieu therapy 3. Continue q-15 minute check for safety 4. Recommend sober living treatment at the highest level of care to which the patient is willing to commit. 5. 21-day hold granted. 6. Guardianship hearing scheduled next week. Involuntary Hold Information 96 Hour Hold: 96 Hour Involuntary Admission: Yes 96 Hour Hold Ending Date: 03/14/22 Attestations NPU Medical Necessity Statement*: Inpatient hospitalization is medically necessary and the clinically appropriate intervention at this time. We will monitor medications and make changes as indicated with likely length of stay is 8-10 days. 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
[2022-04-03] MEDS: buprenorphine-naloxone 4-1 mg Film 2 EACH SUBLINGUAL (17:00)
[2022-04-03] MEDS: simethicone 80 mg Chew PO (18:18)
[2022-04-03] MEDS: trazodone 50 mg Tablet PO (20:10)
[2022-04-03] MEDS: hyDROXYzine 25 mg Capsule 50 MG PO (20:11)
[2022-04-03 20:34] VITALS: BP 109/79; PULSE 68; RESP 16; TEMP 36.8
[2022-04-04 06:00] VITALS: BP 97/58; PULSE 72; RESP 16; TEMP 37; O2SAT 96
[2022-04-04] MEDS: ibuprofen 600 mg Tablet PO (07:05)
[2022-04-04] MEDS: lithium carbonate ER 450 mg Tablet PO ×2 (08:02→20:33)
[2022-04-04] MEDS: gabapentin 300 mg Capsule 600 MG PO ×2 (08:02→17:39)
[2022-04-04] MEDS: fluoxetine 10 mg Capsule 30 MG PO (08:02)
[2022-04-04] MEDS: nicotine 4 mg lozenge MUCOUS MEM ×2 (08:39→12:56)
[2022-04-04] MEDS: benztropine 1 mg Tablet PO (08:39)
--- NOTE | 2022-04-04 08:40 | PC.NURSE ---
Addendum entered by Summer López LPN 04/04/22 10:15: prn cogentin effective, no further c/o drooling...will relay info to Dr. Azar Original Note: PRN COGENTIN 1 MG GIVEN PO PER PT REQUEST, STATES SHE GOT IN INVEGA INJECTION, NOW SHE FEELS LIKE SHE'S DROOLING A LITTLE BIT. WILL CONT TO MONITOR FOR DESIRED MED EFFECTIVENESS.
--- NOTE | 2022-04-04 09:42 | P.NPUPN_ITS ---
Subjective NPU Subjective: Patient presents today having her hearing this morning for guardianship. She reports that she would prefer to take her Suboxone in the morning and we agreed to make that adjustment. She reports she is tolerating things well and making the best of them since we last spoke. He is eating and s leeping well and hopeful for discharge soon after hearing determination. Mental Status Exam MSE Comments: This is a well nourished, well developed white female in hospital scrubs with adequate grooming and good eye contact. No abnormal involuntary motor movements appreciated. She was cooperative with exam in no acute distress. Speech was normal rate and normal volume. Mood was described as anxious, but optimistic. Affect was mood congruent. Thought process was linear and organized. Thought content: patient denies suicidal or homicidal ideation, there was no clear evidence of delusional thinking. She did not appear to be responding to internal stimuli. Her attention and concentration appeared grossly intact. Her insight was limited. her judgment was poor. impulse control appeared limited. Vitals/I&O/Wt Last Vital Signs Temp 98.6 F 04/04/22 06:00 Pulse 72 04/04/22 06:00 Resp 16 04/04/22 06:00 BP 97/58 04/04/22 06:00 Pulse Ox 96 04/04/22 06:00 O2 Del Method 04/04/22 06:00 04/03/22 04/04/22 04/04/22 22:59 06:59 14:59 Intake Total 720 / 720 Balance 720 / 720 Data NPU : 03/22/22 09:48 03/26/22 07:27 A&P Assessment and plan (1) Psychotic disorder: (2) Acute psychosis: (3) Methamphetamine use disorder, severe: (4) Fever: Plan This is a 26 year old white female with a history of trauma, methamphetamine and past opiate use and genetic loading for mental health and addiction issues who presents after recent methamphetamine use reporting paranoia and hallucinations and having problems with extremely poor decision making. 1. Increase Prozac 30mg daily target depression, Invega sustenna given, continue lithium as prescribed. Move Suboxone sublingual to 11 in the morning. 2. Encourage individual, group and milieu therapy 3. Continue q-15 minute check for safety 4. Recommend sober living treatment at the highest level of care to which the patient is willing to commit. 5. 21-day hold granted. 6. Guardianship hearing this morning. Involuntary Hold Information 96 Hour Hold: 96 Hour Involuntary Admission: Yes 96 Hour Hold Ending Date: 03/14/22 Attestations NPU Medical Necessity Statement*: Inpatient hospitalization is medically necessary and the clinically appropriate intervention at this time. We will monitor medications and make changes as indicated with likely length of stay is 6-8 days. Coding Level of Care Code Acute Checkering Machine Operator for Terence Lanza Diagnoses Psychotic disorder F29 Acute psychosis F23 Methamphetamine use disorder, severe F15.20 Fever R50.9
[2022-04-04] MEDS: hyDROXYzine 25 mg Capsule 50 MG PO (11:53)
--- NOTE | 2022-04-04 11:54 | PC.NURSE ---
PRN VISTARIL 50 MG GIVEN PO PER PT C/O STATED ANXIETY, PT UPSET AFTER PHONE CALL WITH GRANDMA, STATES SHE FEELS GUILTY FOR ALL THE STUFF SHE'S DONE IN THE PAST. SPECIFICALLY ASKING FOR A ZYPREXA OFFERED PRN VISTARIL FOR ANXIETY, TOOK MED WITHOUT INCIDENT. WILL CONT TO MONITOR FOR DESIRED MED EFFECTIVENESS.
[2022-04-04 14:00] VITALS: BP 120/80; PULSE 77; RESP 16; O2SAT 98
[2022-04-04] MEDS: buprenorphine-naloxone 4-1 mg Film 2 EACH SUBLINGUAL (15:11)
[2022-04-04] MEDS: trazodone 50 mg Tablet PO (20:33)
[2022-04-04 20:39] VITALS: BP 104/71; PULSE 53; RESP 16; TEMP 36.7; O2SAT 97
[2022-04-05] MEDS: acetaminophen 325 mg Tablet 650 MG PO (04:04)
[2022-04-05] MEDS: nicotine 4 mg lozenge MUCOUS MEM ×3 (04:06→17:40)
[2022-04-05 06:00] VITALS: BP 114/67; PULSE 70; RESP 16; TEMP 36.8; O2SAT 97
[2022-04-05] MEDS: fluoxetine 10 mg Capsule 30 MG PO (08:28)
[2022-04-05] MEDS: gabapentin 300 mg Capsule 600 MG PO ×2 (08:28→17:40)
[2022-04-05] MEDS: lithium carbonate ER 450 mg Tablet PO ×2 (08:29→20:00)
[2022-04-05] MEDS: benztropine 1 mg Tablet PO (09:36)
--- NOTE | 2022-04-05 10:01 | PC.NURSE ---
Behavioral Assessment Patient is calm and cooperative this morning. Patient denies HI/SI and AH/VH. Patient states she is feeling much better than she has in a long time. She also states she understands why her parents want temporary guardianship of her and agrees that it was a good decision.
[2022-04-05] MEDS: buprenorphine-naloxone 4-1 mg Film 2 EACH SUBLINGUAL (10:34)
[2022-04-05 14:00] VITALS: BP 102/71; PULSE 78; RESP 16; TEMP 36.6; O2SAT 97
--- NOTE | 2022-04-05 16:51 | W.PM.NPUPNS ---
Subjective NPU Subjective: Patient returns today reporting that she is hopeful that she and her family has some structured resources in place by discharge in the next week. We discussed her anxiety and our continued resistance with her understanding of avoiding a benzodiazepine. We discussed the risk-benefit and alternatives of increasing her Neurontin to 600 mg 3 times daily gradually over the next several days Genicin may be seen as documented in this note. Continued slow improvement observed. Mental Status Exam MSE Comments: This is a well nourished, well developed white female in hospital scrubs with adequate grooming and good eye contact. No abnormal involuntary motor movements appreciated. She was cooperative with exam in no acute distress. Speech was normal rate and normal volume. Mood was described as okay but anxious, but optimistic. Affect was mood congruent. Thought process was linear and organized. Thought content: patient denies suicidal or homicidal ideation, there was no clear evidence of delusional thinking. She did not appear to be responding to internal stimuli. Her attention and concentration appeared grossly intact. Her insight was limited but improving, her judgment was improving. impulse control appeared limited. Vitals/I&O/Wt Last Vital Signs Temp 98 F 04/05/22 14:00 Pulse 78 04/05/22 14:00 Resp 16 04/05/22 14:00 BP 102/71 04/05/22 14:00 Pulse Ox 97 04/05/22 14:00 O2 Del Method 04/05/22 14:00 Data NPU : 03/22/22 09:48 03/26/22 07:27 A&P Assessment and plan (1) Psychotic disorder: (2) Acute psychosis: (3) Methamphetamine use disorder, severe: (4) Fever: Plan This is a 26 year old white female with a history of trauma, methamphetamine and past opiate use and genetic loading for mental health and addiction issues who presents after recent methamphetamine use reporting paranoia and hallucinations and having problems with extremely poor decision making. 1. Increase Prozac 30mg daily target depression, Invega sustenna given, continue lithium as prescribed. Move Suboxone sublingual to 11 in the morning. Add a 300 mg afternoon dose to the Neurontin 600 mg twice daily for a couple of days before going to 600 mg p.o. 3 times daily 2. Encourage individual, group and milieu therapy 3. Continue q-15 minute check for safety 4. Recommend sober living treatment at the highest level of care to which the patient is willing to commit. 5. 21-day hold granted. 6. Guardianship hearing this morning. Involuntary Hold Information 96 Hour Hold: 96 Hour Involuntary Admission: Yes 96 Hour Hold Ending Date: 03/14/22 Attestations NPU Medical Necessity Statement*: Inpatient hospitalization is medically necessary and the clinically appropriate intervention at this time. We will monitor medications and make changes as indicated with likely length of stay is 5-7 days. Coding Level of Care Code Acute Financial Risk Manager for Terence Lanza Diagnoses Psychotic disorder F29 Acute psychosis F23 Methamphetamine use disorder, severe F15.20 Fever R50.9
[2022-04-05] MEDS: trazodone 50 mg Tablet PO (20:00)
[2022-04-05] MEDS: hyDROXYzine 25 mg Capsule 50 MG PO (20:00)
[2022-04-05 20:22] VITALS: BP 108/67; PULSE 68; RESP 16; O2SAT 99
[2022-04-06] MEDS: trazodone 50 mg Tablet PO ×2 (00:05→20:35)
[2022-04-06 04:50] VITALS: BP 120/70; PULSE 76; RESP 18; O2SAT 97
[2022-04-06] MEDS: lithium carbonate ER 450 mg Tablet PO ×2 (08:09→20:35)
[2022-04-06] MEDS: gabapentin 300 mg Capsule 600 MG PO ×2 (08:09→20:35)
[2022-04-06] MEDS: fluoxetine 10 mg Capsule 30 MG PO (08:09)
[2022-04-06] MEDS: nicotine 4 mg lozenge MUCOUS MEM ×2 (09:35→13:14)
--- NOTE | 2022-04-06 09:44 | PC.NURSE ---
Behavioral Assessment Patient sitting in day room drinking coffee and talking to other patients. Took patient to room for assessment and she said she was feeling great. Patient denies AH/VH and SI/HI. Patient said she is only mildly anxious at a 3/10 but stated she is not needing any medication for it. Calm and cooperative.
[2022-04-06] MEDS: buprenorphine-naloxone 4-1 mg Film 2 EACH SUBLINGUAL (12:06)
--- NOTE | 2022-04-06 12:15 | P.NPUPN_ITS ---
Subjective NPU Subjective: Patient presented today continuing to make small improvements. Most improvement surrounding insight into her situation. We discussed a plan to titrate her gabapentin 600 mg p.o. twice daily 600 mg p.o. 3 times daily my target date 300 mg afternoon dose for several days. Otherwise she was wilkerson pportive in the milieu with other patients and starting to get excited about her discharge in the next 6 days. Mental Status Exam MSE Comments: This is a well nourished, well developed white female in hosp ital scrubs with adequate grooming and good eye contact. No abnormal involuntary motor movements appreciated. She was cooperative with exam in no acute distress. Speech was normal rate and normal volume. Mood was described as okay but anxious. Affect was mood congruent. Thought process was linear and organized. Thought content: patient denies suicidal or homicidal ideation, there was no clear evidence of delusional thinking. She did not appear to be responding to internal stimuli. Her attention and concentration appeared grossly intact. Her insight was limited but improving, her judgment was improving. impulse control appeared limited. Vitals/I&O/Wt Last Vital Signs Temp 98 F 04/06/22 14:00 Pulse 75 04/06/22 14:00 Resp 18 04/06/22 20:14 BP 106/70 04/06/22 14:00 Pulse Ox 97 04/06/22 14:00 O2 Del Method 04/06/22 14:00 Weight last 48 hrs Weight 73.301 kg Data NPU : 03/22/22 09:48 03/26/22 07:27 A&P Assessment and plan (1) Psychotic disorder: (2) Acute psychosis: (3) Methamphetamine use disorder, severe: (4) Fever: Plan This is a 26 year old white female with a history of trauma, methamphetamine and past opiate use and genetic loading for mental health and addiction issues who presents after recent methamphetamine use reporting paranoia and hallucinations and having problems with extremely poor decision making. 1. Increase Prozac 30mg daily target depression, Invega sustenna given, continue lithium as prescribed. Move Suboxone sublingual to 11 in the morning. Add a 300 mg afternoon dose to the Neurontin 600 mg twice daily for a couple of days before going to 600 mg p.o. 3 times daily 2. Encourage individual, group and milieu therapy 3. Continue q-15 minute check for safety 4. Recommend sober living treatment at the highest level of care to which the patient is willing to commit. 5. 21-day hold granted. 6. Guardianship hearing this morning. Involuntary Hold Information 96 Hour Hold: 96 Hour Involuntary Admission: Yes 96 Hour Hold Ending Date: 03/14/22 Attestations NPU Medical Necessity Statement*: Inpatient hospitalization is medically necessary and the clinically appropriate intervention at this time. We will monitor medications and make changes as indicated with likely length of stay is 4-6 days. Coding Level of Care Code Acute Char Conveyor Tender Cellar for Terence Lanza Diagnoses Psychotic disorder F29 Acute psychosis F23 Methamphetamine use disorder, severe F15.20 Fever R50.9
[2022-04-06 14:00] VITALS: BP 106/70; PULSE 75; RESP 16; TEMP 36.6; O2SAT 97
[2022-04-06] MEDS: simethicone 80 mg Chew PO (14:00)
[2022-04-06] MEDS: artificial tears Op Soln 15 mL Btl 1 DROP EYE-BOTH (17:00)
[2022-04-06] MEDS: gabapentin 300 mg Capsule PO (17:28)
[2022-04-06 20:14] VITALS: RESP 18
[2022-04-06] MEDS: hyDROXYzine 25 mg Capsule 50 MG PO (20:35)
[2022-04-07 05:56] VITALS: BMI 24.5
[2022-04-07 06:00] VITALS: BP 102/69; PULSE 72; RESP 18; TEMP 36.6; O2SAT 95
[2022-04-07] MEDS: lithium carbonate ER 450 mg Tablet PO ×2 (08:14→20:40)
[2022-04-07] MEDS: gabapentin 300 mg Capsule 600 MG PO ×2 (08:14→20:41)
[2022-04-07] MEDS: fluoxetine 10 mg Capsule 30 MG PO (08:15)
[2022-04-07] MEDS: nicotine 4 mg lozenge MUCOUS MEM ×2 (09:05→17:05)
[2022-04-07] MEDS: simethicone 80 mg Chew PO (09:30)
--- NOTE | 2022-04-07 11:15 | PC.NURSE ---
Nursing Behavioral Assessment Patient denies AH/VH and SI/HI. Patient showing no signs of distress. Patient has been conversating with patients in the hallway and day room. Patient states she is barely anxious at all today and is glad she is going to have been here 21 days. She states she is a little nervous about leaving, but excited at the same time.
[2022-04-07] MEDS: buprenorphine-naloxone 4-1 mg Film 2 EACH SUBLINGUAL (11:54)
[2022-04-07] MEDS: OLANZapine 5 mg ODT PO (12:22)
[2022-04-07 14:00] VITALS: BP 106/70; PULSE 107; RESP 16; TEMP 36.8; O2SAT 95
--- NOTE | 2022-04-07 14:09 | P.NPUPN_ITS ---
Subjective NPU Subjective: Patient presented today reporting that she was feeling tired. We discussed the possibility of being related to the increase in her Neurontin and we will keep an eye on it. Otherwise continue to express excitement about getting closer to discharge. She denied any other issues. Mental Status Exam MSE Comments: This is a well nourished, well developed white female in hospital scrubs with adequate grooming and good eye contact. No abnormal involuntary motor movements appreciated. She was cooperative with exam in no acute distress. Speech was normal rate and normal volume. Mood was described as tired. Affect was mood congruent. Thought process was linear and organized. Thought content: patient denies suicidal or homicidal ideation, there was no clear evidence of delusional thinking. She did not appear to be responding to internal stimuli. Her attention and concentration appeared grossly intact. Her insight was limited but improving, her judgment was improving. impulse control appeared limited. Vitals/I&O/Wt Last Vital Signs Temp 97.9 F 04/07/22 06:00 Pulse 72 04/07/22 06:00 Resp 18 04/07/22 06:00 BP 102/69 04/07/22 06:00 Pulse Ox 95 04/07/22 06:00 O2 Del Method 04/06/22 14:00 Weight last 48 hrs Weight 73.301 kg Data NPU : 03/22/22 09:48 03/26/22 07:27 A&P Assessment and plan (1) Psychotic disorder: (2) Acute psychosis: (3) Methamphetamine use disorder, severe: (4) Fever: Plan This is a 26 year old white female with a history of trauma, methamphetamine and past opiate use and genetic loading for mental health and addiction issues who presents after recent methamphetamine use reporting paranoia and hallucinations and having problems with extremely poor decision making. 1. Increase Prozac 30mg daily target depression, Invega sustenna given, continue lithium as prescribed. Move Suboxone sublingual to 11 in the morning. Add a 300 mg afternoon dose to the Neurontin 600 mg twice daily for a couple of days before going to 600 mg p.o. 3 times daily 2. Encourage individual, group and milieu therapy 3. Continue q-15 minute check for safety 4. Recommend sober living treatment at the highest level of care to which the patient is willing to commit. 5. 21-day hold granted. 6. Guardianship hearing this morning. Involuntary Hold Information 96 Hour Hold: 96 Hour Involuntary Admission: Yes 96 Hour Hold Ending Date: 03/14/22 Attestations NPU Medical Necessity Statement*: Inpatient hospitalization is medically necessary and the clinically appropriate intervention at this time. We will monitor medications and make changes as indicated with likely length of stay is 3-5 days. Coding Level of Care Code Acute Labor Arbitrator Hearing Office for Terence Boyerd Diagnoses Psychotic disorder F29 Acute psychosis F23 Methamphetamine use disorder, severe F15.20 Fever R50.9
[2022-04-07] MEDS: gabapentin 300 mg Capsule PO (15:11)
[2022-04-07 20:09] VITALS: BP 103/67; PULSE 58; RESP 15; TEMP 36.8; O2SAT 98
[2022-04-08 06:00] VITALS: BP 103/72; PULSE 74; RESP 16; TEMP 36.8; O2SAT 98
[2022-04-08] MEDS: nicotine 4 mg lozenge MUCOUS MEM ×2 (07:36→14:13)
[2022-04-08] MEDS: gabapentin 300 mg Capsule 600 MG PO ×2 (08:06→17:46)
[2022-04-08] MEDS: lithium carbonate ER 450 mg Tablet PO ×2 (08:07→20:43)
[2022-04-08] MEDS: fluoxetine 10 mg Capsule 30 MG PO (08:07)
[2022-04-08] MEDS: benztropine 1 mg Tablet PO (09:58)
[2022-04-08] MEDS: buprenorphine-naloxone 4-1 mg Film 2 EACH SUBLINGUAL (10:00)
[2022-04-08] MEDS: paliperidone palmitate 156 mg Syringe IM (13:35)
[2022-04-08] MEDS: gabapentin 300 mg Capsule PO (13:36)
[2022-04-08 14:00] VITALS: BP 110/80; PULSE 84; RESP 16; TEMP 36.8; O2SAT 98
[2022-04-08] MEDS: OLANZapine 5 mg ODT PO (15:05)
[2022-04-08] MEDS: haloperidol 5 mg Tablet PO (16:19)
--- NOTE | 2022-04-08 17:00 | W.PM.NPUPNS ---
Subjective NPU Subjective: Patient presents today reporting that she is adjusting to the increase in her Neurontin. She continues to gain clarity in her cognition. Treatment team worked with family to have structured options available at discharge. Treatment team working with him to move the discharge date up from Friday to the middle of the week which they appear to be receptive to. She endorses optimism about her recovery. Mental Status Exam MSE Comments: This is a well nourished, well developed white female in hospital scrubs with adequate grooming and good eye contact. No abnormal involuntary motor movements appreciated. She was cooperative with exam in no acute distress. Speech was normal rate and normal volume. Mood was described as better, affect was mood congruent. Thought process was linear and organized. Thought content: patient denies suicidal or homicidal ideation, there was no clear evidence of delusional thinking. She did not appear to be responding to internal stimuli. Her attention and concentration appeared grossly intact. Her insight was limited but improving, her judgment was improving. impulse control appeared limited, but improving. Vitals/I&O/Wt Last Vital Signs Temp 98.3 F 04/08/22 14:00 Pulse 84 04/08/22 14:00 Resp 18 04/08/22 21:12 BP 110/80 04/08/22 14:00 Pulse Ox 98 04/08/22 14:00 O2 Del Method 04/08/22 14:00 04/08/22 04/08/22 04/09/22 14:59 22:59 06:59 Intake Total 1440 / 1440 Balance 1440 / 1440 Weight last 48 hrs Weight 73.301 kg Data NPU : 03/22/22 09:48 03/26/22 07:27 A&P Assessment and plan (1) Psychotic disorder: (2) Acute psychosis: (3) Methamphetamine use disorder, severe: (4) Fever: Plan This is a 26 year old white female with a history of trauma, methamphetamine and past opiate use and genetic loading for mental health and addiction issues who presents after recent methamphetamine use reporting paranoia and hallucinations and having problems with extremely poor decision making. 1. Increase Prozac 30mg daily target depression, second loading dose of Invega sustenna given, continue lithium as prescribed. Move Suboxone sublingual to 11 in the morning. Add a 300 mg afternoon dose to the Neurontin 600 mg twice daily for a couple of days before going to 600 mg p.o. 3 times daily 2. Encourage individual, group and milieu therapy 3. Continue q-15 minute check for safety 4. Recommend sober living treatment at the highest level of care to which the patient is willing to commit. 5. Plan for discharge on Friday. 6. Temporary guardianship granted.. Involuntary Hold Information 96 Hour Hold: 96 Hour Involuntary Admission: Yes 96 Hour Hold Ending Date: 03/14/22 Attestations NPU Medical Necessity Statement*: Inpatient hospitalization is medically necessary and the clinically appropriate intervention at this time. We will monitor medications and make changes as indicated with likely length of stay is 2-3 days. Coding Level of Care Code Acute Legal Contracts Specialist for Terence Lanza Diagnoses Psychotic disorder F29 Acute psychosis F23 Methamphetamine use disorder, severe F15.20 Fever R50.9
[2022-04-08] MEDS: trazodone 50 mg Tablet PO (20:51)
[2022-04-08 21:12] VITALS: RESP 18
[2022-04-09 06:00] VITALS: BP 124/77; PULSE 70; RESP 16; TEMP 36.7; O2SAT 100
[2022-04-09] MEDS: diphenhydrAMINE 50 mg Capsule PO (06:27)
--- NOTE | 2022-04-09 07:58 | PC.NURSE ---
shift assessment mood pleasant, pt hair wet from recent shower. smiles while talking to this nurse, denies SI/HI/AVH ...states she's just ready to leave when she can
[2022-04-09] MEDS: gabapentin 300 mg Capsule 600 MG PO ×2 (08:09→18:11)
[2022-04-09] MEDS: fluoxetine 10 mg Capsule 30 MG PO (08:09)
[2022-04-09] MEDS: lithium carbonate ER 450 mg Tablet PO ×2 (08:09→19:59)
[2022-04-09] MEDS: nicotine 4 mg lozenge MUCOUS MEM ×4 (08:24→19:36)
[2022-04-09] MEDS: OLANZapine 5 mg ODT PO (11:12)
[2022-04-09] MEDS: gabapentin 300 mg Capsule PO (12:29)
[2022-04-09] MEDS: artificial tears Op Soln 15 mL Btl 1 DROP EYE-BOTH (12:30)
[2022-04-09 14:00] VITALS: BP 105/65; PULSE 94; RESP 16; TEMP 36.6; O2SAT 98
--- NOTE | 2022-04-09 16:03 | P.NPUPN_ITS ---
Subjective NPU Subjective: Patient presents today excited about her discharge tomorrow. She reports that she feels optimistic about her ability to maintain her sobriety and is hopeful she can begin building back a life that she can enjoy. Otherwise reports she is tolerating her medication and eating and sleeping well. Mental Status Exam MSE Comments: This is a well nourished, well developed white female in hospital scrubs with appropriate grooming and good eye contact. No abnormal involuntary motor movements appreciated. She was cooperative with exam in no acute distress. Speech was normal rate and normal volume. Mood was described as happy/excited, affect was mood congruent. Thought process was linear and org anized. Thought content: patient denies suicidal or homicidal ideation, there was no clear evidence of delusional thinking. She denied auditory or visual hallucinations. Her attention and concentration appeared grossly intact. Her insight was improving, her judgment was improving. impulse control appeared improving. Vitals/I&O/Wt Last Vital Signs Temp 98.4 F 04/09/22 20:32 Pulse 75 04/09/22 20:32 Resp 16 04/09/22 20:32 BP 101/65 04/09/22 20:32 Pulse Ox 97 04/09/22 20:32 O2 Del Method 04/09/22 14:00 Data NPU : 03/22/22 09:48 03/26/22 07:27 A&P Assessment and plan (1) Psychotic disorder: (2) Acute psychosis: (3) Methamphetamine use disorder, severe: (4) Fever: Plan This is a 26 year old white female with a history of trauma, methamphetamine and past opiate use and genetic loading for mental health and addiction issues who presents after recent methamphetamine use reporting paranoia and hallucinations and having problems with extremely poor decision making. 1. Increase Prozac 30mg daily target depression, second loading dose of Invega sustenna given, continue lithium as prescribed. Move Suboxone sublingual to 11 in the morning. Add a 300 mg afternoon dose to the Neurontin 600 mg twice daily for a couple of days before going to 600 mg p.o. 3 times daily 2. Encourage individual, group and milieu therapy 3. Continue q-15 minute check for safety 4. Recommend sober living treatment at the highest level of care to which the patient is willing to commit. 5. Plan for discharge on Friday. 6. Temporary guardianship granted. Involuntary Hold Information 96 Hour Hold: 96 Hour Involuntary Admission: Yes 96 Hour Hold Ending Date: 03/14/22 Attestations NPU Medical Necessity Statement*: Inpatient hospitalization is medically necessary and the clinically appropriate intervention at this time. We will monitor medications and make changes as indicated with likely length of stay is 1 day. Coding Level of Care Code Acute Flight Mechanic for Terence Fwd Diagnoses Psychotic disorder F29 Acute psychosis F23 Methamphetamine use disorder, severe F15.20 Fever R50.9
[2022-04-09] MEDS: buprenorphine-naloxone 4-1 mg Film 2 EACH SUBLINGUAL (18:11)
[2022-04-09] MEDS: trazodone 50 mg Tablet PO (20:00)
[2022-04-09 20:32] VITALS: BP 101/65; PULSE 75; RESP 16; TEMP 36.9; O2SAT 97
[2022-04-10] MEDS: ibuprofen 600 mg Tablet PO (04:31)
[2022-04-10] MEDS: nicotine 4 mg lozenge MUCOUS MEM ×3 (04:32→13:19)
[2022-04-10 06:00] VITALS: BP 100/65; PULSE 77; RESP 16; TEMP 36.8; O2SAT 94
[2022-04-10] MEDS: gabapentin 300 mg Capsule 600 MG PO (08:11)
[2022-04-10] MEDS: lithium carbonate ER 450 mg Tablet PO (08:11)
[2022-04-10] MEDS: fluoxetine 10 mg Capsule 30 MG PO (08:12)
[2022-04-10] MEDS: benztropine 1 mg Tablet 0.5 MG PO (09:11)
[2022-04-10] MEDS: OLANZapine 5 mg ODT PO (10:58)
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
[2022-04-10 12:42] VITALS: BP 100/65; PULSE 77; RESP 16; TEMP 36.8; O2SAT 94
[2022-04-10] MEDS: gabapentin 300 mg Capsule PO (13:19)
== END 2022-04-10 16:16 | disposition home or self-care (01) | DRG 885 ==
LOC: ER 16:56 → NP 17:22
PROVIDERS: Psychiatry & Neurology Psychiatry; Student in an Organized Health Care Education/Training Program; Admitting Provider Psychiatry & Neurology Psychiatry; Emergency Provider Emergency Medicine; PCP Family Medicine; Visit Provider Psychiatry & Neurology Psychiatry
DX: F25.0 Schizoaffective disorder, bipolar type (principal); F15.20 Other stimulant dependence, uncomplicated; T50.906A Underdosing of unspecified drugs, medicaments and biological substances, initial encounter; Z91.128 Patient's intentional underdosing of medication regimen for other reason; F17.290 Nicotine dependence, other tobacco product, uncomplicated; R50.9 Fever, unspecified; B19.20 Unspecified viral hepatitis C without hepatic coma
CPT/HCPCS: 36415; 36416; 71045; 80048; 80053; 80178; 80306; 80307; 81001; 81025; 82962; 83036; 84443; 85025; 86592; 86705; 86706; 86709; 86803; 87040; 87086; 87340; 87426; 87491; 87522; 87591; 87806; 96372; 97150; 97165; 99285; J0573; Q0162; Q0163

== ENCOUNTER → 2022-04-17 14:07 | Outpatient (BNVA) | payer MEDICAID, SELFPAY | PROVIDERS: PCP Family Medicine; Visit Provider Psychiatry & Neurology Psychiatry | DX: F15.20 Other stimulant dependence, uncomplicated (principal); F23 Brief psychotic disorder; F29 Unspecified psychosis not due to a substance or known physiological condition | CPT/HCPCS: 80307 ==

== ENCOUNTER 2022-11-04 02:06 | Inpatient (IN) | payer MEDICAID, SELFPAY ==
[2022-11-04] VITALS (7 sets, daily range): BP systolic 110–160; BP diastolic 72–100; PULSE 79–118; RESP 14–21; TEMP 36.6–37; O2SAT 93–97; BMI 26.6
[2022-11-04 02:33] LABS: Basophils % 0.5 %; Eosinophils # 0.1 10^3/uL (0.0-0.8); Eosinophils % 0.8 %; Hematocrit 43.2 % (37.0-47.0); Hemoglobin 13.9 g/dL (11.5-15.3); Lymphocytes # 1.8 10^3/uL (0.8-4.8); Lymphocytes % 23.2 %; Mean Corpuscular HGB Conc 32.2 g/dL (30.0-36.0); Mean Corpuscular Hemoglobin 26.5 pg (28.0-34.0); Mean Corpuscular Volume 82.3 fl (81-99); Monocytes # 0.8 10^3/uL (0.2-0.9); Monocytes % 10.9 %; Neutrophils # 4.98 10^3/uL (1.8-7.7); Neutrophils % 64.3 %; Nucleated Red Blood Cells % 0 %; Platelet Count 227 10^3/cmm (130-400); Red Blood Count 5.25 10^6/uL (4.1-5.3); Red Cell Distribution Width 12.1 % (12.1-15.1); White Blood Count 7.7 10^3/uL (4.0-10.0)
--- NOTE | 2022-11-04 02:35 | ECG_ITS ---
[facility] Test Date: 2022-11-04 Pat Name: Yolanda Macias Department: Room: Gender: Female Specialist Managers: : 1995 Requested By: Swapnil Jacobsen Order Number: [id number] Mathew MD: Rex Ghosh M.D. Measurements Intervals [place] Rate: 93 P: 60 IN: 157 QRS: 56 QRSD: 84 T: 2 QT: 350 QTc: 436 Interpretive Statements SINUS RHYTHM NONSPECIFIC T-WAVE ABNORMALITY No previous ECG available for comparison Electronically Signed On 11-04-2022 17:08:08 CDT by Rex Ghosh M.D. [id number]
[2022-11-04] MEDS: haloperidol inj 5 mg/mL INJ 1 mL IVP (02:39)
[2022-11-04] MEDS: LORazepam 2 mg/mL INJ 1 mL 1 MG IVP (02:39)
[2022-11-04] MEDS: sodium chloride 0.9% 500 ML 999 ML IV (02:41)
[2022-11-04 02:54] LABS: Lithium 0.1 mmol/L (0.6-1.2)
[2022-11-04 02:58] LABS: Alanine Aminotransferase 12 U/L (0-33); Albumin Level 4.6 g/dL (3.5-5.2); Alkaline Phosphatase 56 U/L (35-105); Anion Gap 17.3 (5-19); Aspartate Amino Transferase 28 U/L (0-32); Blood Urea Nitrogen 8 mg/dL (6-20); Calcium 9.4 mg/dL (8.5-10.5); Carbon Dioxide 23 mmol/L (22-29); Chloride 100 mmol/L (98-107); Globulin 3.1 g/dL (1.3-4.6); Glomerular Filtration Rate 75.1 mL/min (90-130); Glucose 135 mg/dL (65-115); Osmolality Calculated 284 mOsm/kg (285-295); Potassium 3.3 mmol/L (3.5-5.1); Sodium 137 mmol/L (136-145); Total Bilirubin 0.2 mg/dL (0.15-1.2); Total Protein 7.7 g/dL (6.6-8.7)
[2022-11-04 03:01] LABS: Acetaminophen < 5.0 ug/mL (10-30); Alcohol Level < 10 mg/dL (0-10); Salicylate < 0.3 mg/dL (3-10)
--- NOTE | 2022-11-04 03:32 | ED.C_ITS ---
HPI - Psych General: Chief Complaint: Psychiatric Symptoms Stated Complaint: psychiatric symptoms Time Seen by Provider: 11/04/22 02:15 History of Present Illness: 27-year-old female with a history of schizophrenia. She also has a history of illicit drug use. Her parents note that she had been free of drug use since her prior admission in March, for which she had stayed 30 days in the neuropsychiatric unit. She had been doing quite well. She took a job at [employer] recently, and has not been doing as well since that time. She admitted to EMS crew that she took methamphetamine this morning at some point. She presents awake, hyperalert, with tangential speech and flight of ideas. She has not been combative. MD complaint: altered mental status Onset (ago): hour(s) Duration: constant History of same: Yes Relieving factors: none Exacerbating factors: drug use Context: recent drug abuse and significant life stressor Associated psychiatric symptoms: racing thoughts, auditory hallucinations, visual hallucinations and delusions Associated symptoms: Reports delusions; Deny homicidal ideation or suicidal ideation Treatments prior to arrival: none Review of Systems General: Reports: ROS unobtainable due to mental status Psych: Denies: suicidal ideation or homicidal ideation [facility] ED PFSH: Medical History Hepatitis C infection Psychiatric care Seizure disorder Social History Smoking and tobacco status: current every day smoker (vape) e-cigarettes E- Cigarette Details: vaporizer device Substance/Drug Use: former Date of last use: meth user-quit date of 06/2021 Physical Exam Const: COMMON NORMALS: healthy appearing EXAM LIMITATIONS: altered mental status GENERAL APPEARANCE: cooperative and anxious; not ill appearing and not frail appearing HENMT: COMMON NORMALS: normocephalic, atraumatic and Normal external nose present HEAD & SCALP: normocephalic and atraumatic FACE & SINUS: normal facial exam and face symmetric NOSE: Normal external nose present Eye: COMMON NORMALS: Equal, round and reactive pupils present and EOMs intact bilaterally PUPIL: Yes Equal, round and reactive pupils present Neck/C-Spine: GENERAL: Yes trachea midline Chest: CHEST: Yes Symmetrical chest wall rise Resp: COMMON NORMALS: normal respiratory effort, No use of accessory muscles and clear to auscultation bilaterally AUSCULTATION: clear to auscultation bilaterally Cardio: COMMON NORMALS: regular rhythm RATE: tachycardic RHYTHM: regular rhythm GI: COMMON NORMALS: Normal to inspection, nondistended, normoactive bowel sounds present and Soft to palpation PALPATION: Yes Soft to palpation Extremity: COMMON NORMALS: no pedal edema Neuro: RADHA COMA SCALE: document GCS findings [place] coma scale eye opening: Spontaneous Radha coma scale verbal response: Confused [place] coma scale motor response: Obey commands [place] coma scale total score: 14 Psych: COMMON NORMALS: cooperative ATTITUDE: Yes bizarre ACTIVITY/MOTOR BEHAVIOR: Yes psychomotor agitation and Yes fidgeting SPEECH: Yes Pressured speech present MOOD & AFFECT: Yes irritable THOUGHT PROCESS: disorganized THOUGHT CONTENT: Yes delusions ATTENTION/CONCENTRATION: Yes attention grossly impaired and Yes concentration grossly impaired MEMORY/COGNITION: Yes memory grossly impaired and Yes cognition grossly intact INSIGHT: Limited insight present (Psych) JUDGEMENT: Limited judgement present (Psych) Skin: LESIONS: no lesions Course Vital Signs: Vital signs: Vital Signs Temperature 98.6 F 11/04/22 02:07 Pulse Rate 79 11/04/22 03:33 Respiratory Rate 16 11/04/22 03:33 Blood Pressure 115/77 11/04/22 03:33 Pulse Oximetry 95 11/04/22 03:33 Oxygen Delivery Me thod Room Air 11/04/22 03:33 MDM - Psych Medical Decision Making 27-year-old female with a history of schizophrenia and illicit drug use. She admitted to methamphetamine use tonight. She is acting in a manner certainly consistent with this. Potassium is 3.3. CBC is normal. BMP is otherwise not remarkable. [place] level is low. Unknown whether she is still on lithium or not. At the alcohol level is negative. Urine drug screen is pending. Because of significant psychosis, she will require n.p.u. admission. As the patient's mother and father are her legal guardians, and request admission, she will not require 96-hour hold paperwork. Lab Data 11/04/22 02:20 11/04/22 02:20 Laboratory Results WBC 7.7 10^3/uL (4.0-10.0) 11/04/22 02:20 RBC 5.25 10^6/uL (4.1-5.3) 11/04/22 02:20 Hgb 13.9 g/dL (11.5-15.3) 11/04/22 02:20 Hct 43.2 % (37.0-47.0) 11/04/22 02:20 MCV 82.3 fl (81-99) 11/04/22 02:20 MCH 26.5 pg (28.0-34.0) L 11/04/22 02:20 MCHC 32.2 g/dL (30.0-36.0) 11/04/22 02:20 RDW 12.1 % (12.1-15.1) 11/04/22 02:20 Plt Count 227 10^3/cmm (130-400) 11/04/22 02:20 MPV 11.0 fL (7.4-10.4) H 11/04/22 02:20 Neut % (Auto) 64.3 % 11/04/22 02:20 Lymph % (Auto) 23.2 % 11/04/22 02:20 [place] % (Auto) 10.9 % 11/04/22 02:20 Eos % (Auto) 0.8 % 11/04/22 02:20 Baso % (Auto) 0.5 % 11/04/22 02:20 Neut # (Auto) 4.98 10^3/uL (1.8-7.7) 11/04/22 02:20 Lymph # (Auto) 1.8 10^3/uL (0.8-4.8) 11/04/22 02:20 [place] # (Auto) 0.8 10^3/uL (0.2-0.9) 11/04/22 02:20 Eos # (Auto) 0.1 10^3/uL (0.0-0.8) 11/04/22 02:20 Baso # (Auto) 0.0 10^3/uL (0.0-0.1) 11/04/22 02:20 Nucleated RBC % (auto) 0 % 11/04/22 02:20 Nucleated RBCs # 0.0 /100WBC 11/04/22 02:20 Sodium 137 mmol/L (136-145) 11/04/22 02:20 Potassium 3.3 mmol/L (3.5-5.1) L 11/04/22 02:20 Chloride 100 mmol/L (98-107) 11/04/22 02:20 Carbon Dioxide 23 mmol/L (22-29) 11/04/22 02:20 Anion Gap 17.3 (5-19) 11/04/22 02:20 BUN 8 mg/dL (6-20) 11/04/22 02:20 Creatinine 0.9 mg/dL (0.5-0.9) 11/04/22 02:20 GFR Calculation 75.1 mL/min (90-130) L 11/04/22 02:20 Glucose 135 mg/dL (65-115) H 11/04/22 02:20 Calculated Osmolality 284 mOsm/kg (285-295) L 11/04/22 02:20 Calcium 9.4 mg/dL (8.5-10.5) 11/04/22 02:20 Total Bilirubin 0.2 mg/dL (0.15-1.2) 11/04/22 02:20 AST 28 U/L (0-32) 11/04/22 02:20 ALT 12 U/L (0-33) 11/04/22 02:20 Alkaline Phosphatase 56 U/L (35-105) 11/04/22 02:20 Total Protein 7.7 g/dL (6.6-8.7) 11/04/22 02:20 Albumin 4.6 g/dL (3.5-5.2) 11/04/22 02:20 Globulin 3.1 g/dL (1.3-4.6) 11/04/22 02:20 TSH 1.80 uIU/mL (0.27-4.20) 11/04/22 02:20 HCG, Qual Negative (Negative) 11/04/22 03:31 Salicylates < 0.3 mg/dL (3-10) L 11/04/22 02:20 Acetaminophen < 5.0 ug/mL (10-30) L 11/04/22 02:20 [place] 0.1 mmol/L (0.6-1.2) L 11/04/22 02:20 Ethyl Alcohol < 10 mg/dL (0-10) 11/04/22 02:20 Discharge Plan Discharge Patient Disposition: Admitted As Inpatient Clinical Impression: Acute psychosis Condition: Stable Prescriptions: No Action buprenorphine-naloxone [Suboxone] 8-2 mg film 1 film sublingual DAILY benztropine 1 mg Tablet 0.5 mg PO BID PRN (Reason: Mild Extrapyramidal symptoms) 30 Days Qty: 30 1RF fluoxetine 10 mg Capsule 30 mg PO DAILY 30 Days Qty: 90 1RF gabapentin 300 mg Capsule 300 mg PO 1300 30 Days Qty: 30 1RF gabapentin 600 mg tablet 600 mg PO BID 30 Days Qty: 60 1RF Rx Instructions: @ 0900, 1800 trazodone 50 mg Tablet 50 mg PO BEDTIME PRN (Reason: Sleep) 30 Days Qty: 30 1RF lithium carbonate 450 mg Tablet Extended Release 450 mg PO 0900,2100 30 Days Qty: 60 1RF Invega Sustenna 156 mg/mL syringe 156 mg IM Q30D 30 Days Qty: 1 1RF Rx Instructions: next injection 05/06/22 Referrals: Wayne Ken DO [Primary Care Provider] - Coding Level of Care Code ED [facility] for Terence Lanza
[2022-11-04 03:40] LABS: HCG Qualitative Urine. Negative (Negative)
[2022-11-04 03:44] LABS: Add Urine Microscopic? NO; Charge for UA Resulting for Rev
[2022-11-04 03:51] LABS: Bilirubin Urine Neg (Negative); Blood Urine Neg (Negative); Glucose Urine UA Norm (Normal); Ketones Urine Negative (Negative); Leukocyte Esterase Urine Negative (Negative); Nitrate Urine Negative (Negative); Protein Urine Neg (Negative); Specific Gravity, Urine 1.005 (1.005-1.030); Urine Appearance Clear (CLEAR); Urine Color Yellow (Yellow); Urobilinogen Urine Norm (Negative); pH Urine 7 (5-7)
[2022-11-04 03:59] LABS: Amphetamines Screen Urine Negative (Negative); Barbiturates Screen Urine Negative (Negative); Benzodiazepines Screen Urine Negative (Negative); Cocaine Screen Urine Negative (Negative); Opiate Screen Urine Negative (Negative); PCP Screen Urine Negative (Negative); THC Screen Urine Negative (Negative)
[2022-11-04] MEDS: paliperidone palmitate 234 mg Syringe IM (11:26)
--- NOTE | 2022-11-04 11:30 | PC.NURSE ---
Administered 234mg Invega to patient's left deltoid. Lot: [id number]. Exp: 01/2024
[2022-11-04] MEDS: buprenorphine-naloxone 4-1 mg Film 2 EACH SUBLINGUAL (11:35)
[2022-11-04] MEDS: fluoxetine 10 mg Capsule 30 MG PO (11:35)
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
[2022-11-04] MEDS: CLONazepam 0.5 mg Tablet 0.25 MG PO ×2 (14:12→21:02)
[2022-11-04] MEDS: trazodone 50 mg Tablet PO (21:04)
[2022-11-05 04:51] LABS: Amphetamines Screen Urine Negative (Negative); Barbiturates Screen Urine Negative (Negative); Benzodiazepines Screen Urine Positive (Negative); Cocaine Screen Urine Negative (Negative); Opiate Screen Urine Negative (Negative); PCP Screen Urine Negative (Negative); THC Screen Urine Positive (Negative)
[2022-11-05] MEDS: fluoxetine 20 mg Capsule 40 MG PO (08:34)
[2022-11-05] MEDS: CLONazepam 0.5 mg Tablet 0.25 MG PO ×3 (08:34→20:09)
[2022-11-05] MEDS: buprenorphine-naloxone 4-1 mg Film 2 EACH SUBLINGUAL (08:34)
[2022-11-05 14:00] VITALS: BP 112/77; PULSE 89; RESP 16; TEMP 36.6; O2SAT 96
--- NOTE | 2022-11-05 15:27 | P.NPUPN_ITS ---
Subjective NPU Subjective: The patient is a 27-year-old white female with a history of polysubstance dependence along with psychotic disorder and unspecified mood disorder who was admitted with worsening depression and reports of manic symptoms. The patient had reported feeling more tired with the reinitiation of Invega Sustenna 234 mg grams delivered intramuscularly yesterday. She reported feeling less anxious with the initiation of Klonopin. She reported that she had continued goals of returning home and acknowledged that she had been declining over the past few weeks with the increase in stress and the lack of support through her medications which had included previously lithium and the Invega intramuscular. She had reported difficulties with maintenance of taking lithium and stated that she wished to remain on the Invega to help her with her mood instability. She had continued to isolate herself on the milieu but was able to engage in appropriate self-care. She denied having any thoughts of hurting herself or others. She had acknowledged that she had attempted to take control of her dosing of her medications and it did not work out so good . Mental Status Exam MSE Comments: She is casually dressed white female with adequate hygiene and normal gait with no evidence of any abnormal involuntary motor movements tics or tremors appreciated. Her speech was normal in regards to rate rhythm and prosody. She was alert and oriented to person place and time. Her recent and remote memory were grossly intact. Her attention span appeared fair. Her mood was described as good. Her affect remains was subdued. There was no evidence of any delusional thinking. There is no evidence of flight of ideas. Her thought process was linear and logical. Her thought content showed no evidence of jose r icidal or suicidal ideation. She did not appear to be responding to internal stimuli. Her insight is poor. Her judgment is poor. Her impulse control is limited. Vitals/I&O/Wt Last Vital Signs Temp 98 F 11/05/22 14:00 Pulse 89 11/05/22 14:00 Resp 16 11/05/22 14:00 BP 112/77 11/05/22 14:00 Pulse Ox 96 11/05/22 14:00 O2 Del Method Room Air 11/05/22 14:00 Weight last 48 hrs Weight 77.111 kg Data NPU 11/04/22 02:20 11/04/22 02:20 A&P Assessment and plan (1) Depressive disorder: (2) ALIZE (generalized anxiety disorder): (3) Acute psychosis: (4) Methamphetamine use disorder, severe: (5) Opioid dependence on agonist therapy: (6) Psychotic disorder: Plan This is a 26 year old white female with a history of trauma, ALIZE, methamphetami ne induced psychosis and past opiate use and genetic loading for mental health and addiction issues who presents after recent methamphetamine use with increased depression and anxiety. 1. Continue Suboxone and continue Invega Sustenna at 234 mg IM with plan for next invega sustenna in 4-7 days. Klonopin .25mg tid to target anxiety. Continue Prozac to 40mg daily. 2. Encourage individual, group and milieu therapy 3. Continue q-15 minute check for safety 4. Recommend sober living treatment at the highest level of care to which the patient is willing to commit. Involuntary Hold Information 96 Hour Hold: 96 Hour Involuntary Admission: No Attestations NPU Medical Necessity Statement*: Inpatient hospitalization is medically necessary and deemed to be the clinically appropriate intervention at this time. We will monitor/ initiate medications and make changes as indicated. She will be in the hospital for over 2 midnights. Her likely length of stay is 3-4 days. Coding Level of Care Code Acute Code for [facility] Fwd Diagnoses Depressive disorder F32.A ALIZE (generalized anxiety disorder) F41.1 Acute psychosis F23 Methamphetamine use disorder, severe F15.20 Opioid dependence on agonist therapy F11.20 Psychotic disorder F29
[2022-11-05] MEDS: trazodone 50 mg Tablet PO (20:09)
[2022-11-05 22:00] VITALS: BP 112/76; PULSE 98; RESP 15; TEMP 36.6; O2SAT 95
[2022-11-06 06:00] VITALS: RESP 16
[2022-11-06] MEDS: buprenorphine-naloxone 4-1 mg Film 2 EACH SUBLINGUAL (09:16)
[2022-11-06] MEDS: fluoxetine 20 mg Capsule 40 MG PO (09:16)
[2022-11-06] MEDS: CLONazepam 0.5 mg Tablet 0.25 MG PO ×2 (09:16→14:43)
[2022-11-06 09:17] VITALS: BP 102/67; PULSE 66; RESP 16; TEMP 36.5; O2SAT 96
[2022-11-06] MEDS: nicotine 4 mg lozenge MUCOUS MEM (10:53)
[2022-11-06 13:07] VITALS: BP 102/69; PULSE 80; RESP 16; TEMP 36.9; O2SAT 95
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
[2022-11-06 14:30] VITALS: BP 102/69; PULSE 80; RESP 16; TEMP 36.9; O2SAT 95
--- NOTE | 2022-11-06 16:01 | PC.NURSE ---
written discharge instruction discussed with patient and pt guardian Sean Macias, both stated compliance and understanding pt left pov with family.
== END 2022-11-06 16:03 | disposition home or self-care (01) | DRG 897 ==
LOC: ER 03:50 → NP 04:07
PROVIDERS: Admitting Provider Psychiatry & Neurology Psychiatry; Emergency Provider Emergency Medicine; PCP Family Medicine; Visit Provider Psychiatry & Neurology Psychiatry
DX: F15.259 Other stimulant dependence with stimulant-induced psychotic disorder, unspecified (principal); F33.9 Major depressive disorder, recurrent, unspecified; F11.20 Opioid dependence, uncomplicated; F41.0 Panic disorder [episodic paroxysmal anxiety]; F41.1 Generalized anxiety disorder; F10.11 Alcohol abuse, in remission; Z86.19 Personal history of other infectious and parasitic diseases; F17.290 Nicotine dependence, other tobacco product, uncomplicated
CPT/HCPCS: 80053; 80178; 80306; 80307; 81003; 81025; 84443; 85025; 93005; 96372; 96374; 96375; 97165; 99285; J0573; J1630; J2060; J7040